=== PATIENT | male | born 1945 | race Hispanic/Latino ===

== ENCOUNTER 2019-01-15 12:29 | Emergency (ER) | payer MEDICARE, OTHER ==
--- OUTSIDE RECORDS SUMMARY | 2019-01-15 12:31 | XMS REPORT | Clinical Summary ---
:1945 Author Organization [facility] Address [address] [place] [address] Care Team Providers Name Role Phone Jacqueline Abad MD Primary Care Provider Allergies No Known Allergies Medications Medication Sig Dispensed Refills Start Date End Date Status metFORMIN (GLUCOPHAGE) Take 1,000 mg by 0 Active 1,000 mg tablet mouth 2 (two) times a day with meals. Active Problems Problem Noted Date Vitamin D deficiency 12/31/2016 Essential hypertension 12/31/2016 Encephalopathy 12/28/2016 Metabolic acidosis 12/28/2016 Impaired left ventricular relaxation 12/28/2016 Anemia due to blood loss 12/28/2016 Thrombocytopenia 12/28/2016 S/P aortic valve replacement 12/24/2016 Coronary artery disease involving coronary bypass graft of [place] heart 2016 Respiratory insufficiency 12/24/2016 Aortic valve stenosis 12/23/2016 Coronary artery disease involving [place] coronary artery 12/23/2016 Type 2 diabetes mellitus without complication 12/23/2016 CHF (congestive heart failure) Immunizations Name Dates Previously Given Next Due Pneumococcal Conjugate 13-Valent 01/01/2017 Family History Medical History Relation Name Comments Diabetes type II Brother No Known Problems Mother Diabetes type II Sister Relation Name Status Comments Brother Father Mother Sister Social History Tobacco Use Types Packs/Day Years Used Date Former Smoker Cigarettes Tobacco Cessation: Counseling Given: No Alcohol Use Drinks/Week oz/Week Comments No Sex Assigned at Date Recorded Not on file Job Start Date Occupation Industry Not on file Not on file Not on file Travel History Travel Start Travel End No recent travel history available. Last Filed Vital Signs Not on file Plan of Treatment Health Maintenance Due Date Last Done Comments DIABETIC RETINAL EYE EXAM 1945 DIABETIC FOOT EXAM 1955 URINE MICROALBUMIN 1956 COLON CANCER SCREENING 1996 SHINGLES VACCINES (#1) 1996 PNEUMOCOCCAL POLYSACCHARIDE VACCINE AGE 65 AND OVER 2011 65+ PNEUMOCOCCAL VACCINE (2 of 2 - PPSV23) 01/01/2018 01/01/2017 INFLUENZA VACCINE 06/15/2018 Implants Implanted Type Area Packaging Line Operator Device Shelf Model / Identifier Expiration Serial / Date Lot Lead Pace José Miguel Mycrdl Unipol Tmpry Streamline - [id number] Cardiovascular N/A : [employer] [place] - [id number] / Implanted: 12/24/2016 (Quantity not on file) Implants N/A CARDIAC SRGRY / Valve Aortic Hemo Peric Tiss W/Stanford Tech Cuff 21mm Trifecta - [id number] Cardiovascular N/A: ST LEMUEL 08/26/2020 TFGT 21A / Implanted: 12/24/2016 (Quantity not on file) Implants N/A STRUCTURAL [id number] / HEART [id number] Emigrant Perph Vasclr Ptfe 1.2x10cm 1.65mm - [id number] Vascular Graft N/A: BARD PERIPHERAL 09/11/2021 [id number] / Implanted: 12/24/2016 (Quantity not on file) N/A VASCULAR / [id number] Results Not on fileafter 01/14/2018 Insurance Payer Benefit Plan / Group Subscriber ID Type Phone Address [employer] [facility] xxxxxxxxx HMO (Home) [facility] ZEE [id number] Advance Directives Patient has advance care planning documents, and code status on file. For more information, please contact:[place] [address] Code Status Date Activated Date Inactivated Comments Full Code 12/23/2016 7:42 PM 01/03/2017 2:57 PM Code Status decision reached by: Patient
--- OUTSIDE RECORDS SUMMARY | 2019-01-15 12:32 | XMS REPORT | Clinical Summary ---
:1945 Author Organization [facility] Address [address] [place] [address] Care Team Providers Name Role Phone Alexandre Abad Primary Care Provider Allergies No Known Allergies Medications Medication Sig Dispensed Refills Start Date End Date Status clopidogrel (PLAVIX) 75 Take 75 mg by 0 Active mg tablet mouth daily. losartan (COZAAR) 50 MG Take 50 mg by 0 Active tablet mouth daily. aspirin 81 MG EC tablet Take 81 mg by 0 Active mouth daily. metoprolol (TOPROL-XL) Take 25 mg by 0 Active 25 MG 24 hr tablet mouth daily. atorvastatin (LIPITOR) Take 20 mg by 0 Active 20 MG tablet mouth daily. escitalopram oxalate Take 10 mg by 0 Active (LEXAPRO) 10 MG tablet mouth daily. traMADol (ULTRAM) 50 mg Take 1 tablet (50 30 tablet 0 06/26/2018 Active tablet mg total) by mouth every 6 (six) hours as needed. Max Daily Amount: 200 mg Active Problems Not on file Encounters Date Type Specialty Care Team Description 06/26/2018 Emergency Emergency Medicine Elizabeth Garza RLQ abdominal pain MD [place] (Primary Dx) after 01/14/2018 Social History Tobacco Use Types Packs/Day Years Used Date Former Smoker Smokeless Tobacco: Never Used Alcohol Use Drinks/Week oz/Week Comments No Sex Assigned at Date Recorded Not on file Job Start Date Occupation Industry Not on file Not on file Not on file Travel History Travel Start Travel End No recent travel history available. Last Filed Vital Signs Vital Sign Reading Time Taken Blood Pressure 158/79 06/26/2018 10:33 PM CDT Pulse 72 06/26/2018 10:33 PM CDT Temperature 37.3 C (99.2 F) 06/26/2018 8:14 PM CDT Respiratory Rate 17 06/26/2018 10:33 PM CDT Oxygen Saturation 96% 06/26/2018 10:33 PM CDT Inhaled Oxygen Concentration - - Weight 72.6 kg (160 lb) 06/26/2018 8:14 PM CDT Height 162.6 cm (5' 4") 06/26/2018 8:14 PM CDT Body Mass Index 27.46 06/26/2018 8:14 PM CDT Plan of Treatment Not on file Procedures Procedure Name Priority Date/Time Associated Comments Diagnosis RHYTHM STRIP - SCAN 06/27/2018 3:[address] ABDOMEN/PELVIS STAT 06/26/2018 10:20 Results for this WITHOUT IV CONTRAST PM CDT procedure are in the results section. CBC W/PLT COUNT & STAT 06/26/2018 8:31 Results for this AUTO DIFFERENTIAL PM CDT procedure are in the results section. URINALYSIS W/ STAT 06/26/2018 8:31 Results for this MICROSCOPIC PM CDT procedure are in the results section. LIPASE STAT 06/26/2018 8:31 Results for this PM CDT procedure are in the results section. HEPATIC FUNCTION STAT 06/26/2018 8:31 Results for this PANEL PM CDT procedure are in the results section. BASIC METABOLIC PANEL STAT 06/26/2018 8:31 Results for this (7) PM CDT procedure are in the results section. CBC W/PLT COUNT & STAT 06/26/2018 8:31 Results for this AUTO DIFFERENTIAL PM CDT procedure are in the results section. after 01/14/2018 Results RHYTHM STRIP - SCAN (06/27/2018 3:36 PM CDT) Narrative Performed At CT abdomen pelvis without contrast (06/26/2018 10:20 PM CDT) Narrative Performed At Addendum Begins [facility] REPORT STATUS:A Correction: The examination was performed without IV contrast. Signed: Tyler Teague MD Report Verified Date/Time:07/28/2018 23:42:17 Reading Location: [address] Reading Room Addendum Ends FINAL REPORT CLINICAL HISTORY: Right lower quadrant pain FINDINGS: Multiple axial images of the abdomen and pelvis were performed before and after the uncomplicated administration of IV contrast. Oral contrast was given. This exam was performed according to our departmental dose-optimization program, which includes automated exposure control, adjustment of the mA and/or kV according to patient size and/or use of the iterative reconstruction technique. Comparison:None. Lower chest: 5 mm noncalcified, well-circumscribed nodule in the right lower lobe. No pleural effusion or pneumothorax. Previous sternotomy. Atherosclerotic calcification of the coronary arteries. Enteric contrast in the distal esophagus. Liver: Punctate calcified granulomata in the liver Gallbladder and biliary tree: Previous cholecystectomy Spleen: No significant findings. Adrenal Glands: No significant findings. Kidneys and ureters: No significant findings. Stomach and Duodenum: Small hiatal hernia. Pancreas: No significant findings. Bowel: No significant findings. Appendix: Normal. Bladder: No significant findings. Major vascular structures: Scattered atherosclerotic calcifications Reproductive organs: No significant findings. Other: No free air, fluid or adenopathy Skeleton: No acute bony abnormality. IMPRESSION: No CT abnormality to explain the patient's right lower quadrant pain the appendix is normal. Small hiatal hernia. Enteric contrast is present in the distal esophagus, possibly reflecting reflux. Outpatient upper GI examination can be performed, if clinically indicated. Previous cholecystectomy. 5 mm, noncalcified nodule in the right lower lobe. Please see below for published recommendations related to follow-up. 2017 Fleischner Society Recommendations for Single Solid Lung Nodule Follow-Up based on size (average of long- and short-axis diameters) <6 mm Low-Risk Patient: No routine follow-up <6 mm High-Risk Patient: Optional CT at 12 months Signed: Tyler Teague MD Report Verified Date/Time:06/26/2018 22:41:15 Reading Location: [address] Procedure Note Interface, External Ris In - 07/28/2018 11:44 PM CDT Addendum Begins REPORT STATUS:A Correction: The examination was performed without IV contrast. Signed: Tyler Teague MD Report Verified Date/Time: 07/28/2018 23:42:17 Reading Location: [address] Reading Room Addendum Ends FINAL REPORT CLINICAL HISTORY: Right lower quadrant pain FINDINGS: Multiple axial images of the abdomen and pelvis were performed before and after the uncomplicated administration of IV contrast. Oral contrast was given. This exam was performed according to our departmental dose-optimization program, which includes automated exposure control, adjustment of the mA and/or kV according to patient size and/or use of the iterative reconstruction technique. Comparison:None. Lower chest: 5 mm noncalcified, well-circumscribed nodule in the right lower lobe. No pleural effusion or pneumothorax. Previous sternotomy. Atherosclerotic calcification of the coronary arteries. Enteric contrast in the distal esophagus. Liver: Punctate calcified granulomata in the liver Gallbladder and biliary tree: Previous cholecystectomy Spleen: No significant findings. Adrenal Glands: No significant findings. Kidneys and ureters: No significant findings. Stomach and Duodenum: Small hiatal hernia. Pancreas: No significant findings. Bowel: No significant findings. Appendix: Normal. Bladder: No significant findings. Major vascular structures: Scattered atherosclerotic calcifications Reproductive organs: No significant findings. Other: No free air, fluid or adenopathy Skeleton: No acute bony abnormality. IMPRESSION: No CT abnormality to explain the patient's right lower quadrant pain the appendix is normal. Small hiatal hernia. Enteric contrast is present in the distal esophagus, possibly reflecting reflux. Outpatient upper GI examination can be performed, if clinically indicated. Previous cholecystectomy. 5 mm, noncalcified nodule in the right lower lobe. Please see below for published recommendations related to follow-up. 2017 Fleischner Society Recommendations for Single Solid Lung Nodule Follow-Up based on size (average of long- and short-axis diameters) <6 mm Low-Risk Patient: No routine follow-up <6 mm High-Risk Patient: Optional CT at 12 months Signed: Tyler Teague MD Report Verified Date/Time: 06/26/2018 22:41:15 Reading Location: [address] Reading Room Performing Organization Address City/State/Zipcode Phone Number GE RIS CBC with platelet count + automated diff (06/26/2018 8:31 PM CDT) WBC 10.1 (H) 4.0 - 10.0 K/L [facility] RBC 4.59 4.20 - 5.80 M/L [facility] Hemoglobin 14.8 13.0 - 16.8 GM/DL [facility] Hematocrit 42.7 40.0 - 50.0 % [facility] MCV 93.0 82.0 - 98.0 fL [facility] MCH 32.3 27.0 - 33.0 pg [facility] MCHC 34.7 32.0 - 36.0 GM/DL [facility] RDW 13.4 10.3 - 14.2 % [facility] Platelets 186 150 - 430 K/CU MM [facility] MPV 7.5 6.5 - 10.5 fL [facility] nRBC 0 0 - 0 /100 WBC [facility] % Neutros 76 % [facility] % Lymphs 18 % [facility] % Monos 5 % [facility] % Eos 1 % [facility] % Baso 0 % [facility] # Neutros 7.60 1.80 - 8.00 K/L [facility] # Lymphs 1.80 1.48 - 4.50 K/L [facility] # Monos 0.50 0.00 - 1.30 K/L [facility] # Eos 0.10 0.00 - 0.50 K/L [facility] # Baso 0.00 0.00 - 0.20 K/L [facility] Specimen Blood Performing Organization Address [facility] Phone Number [facility] [address] [place] [address] [phone] Urinalysis w/Microscopic (06/26/2018 8:31 PM CDT) Color, UA Yellow [facility] Clarity, UA Clear [facility] Specific [place], UA 1.025 1.001 - 1.035 [facility] pH, UA 5.5 5.0 - 8.0 [facility] Protein, UA Trace (A) Negative [facility] Glucose, UA >=1000 mg/dL (A) Negative [facility] Ketones, UA Trace (A) Negative [facility] Bilirubin, UA Negative Negative [facility] Blood, UA Trace (A) Negative [facility] Nitrite, UA Negative Negative [facility] Leukocytes, UA Negative Negative [facility] Urobilinogen, UA 0.2 0.2 - 1.0 mg/dL [facility] Bacteria, UA None Seen [facility] RBC, UA None Seen /HPF [facility] WBC, UA <5 /HPF [facility] SQUAMOUS EPITHELIAL None Seen /HPF [facility] Specimen Source [facility] Specimen Urine - Urine, Clean Catch Performing Organization Address [facility] Phone Number [address] [phone] Lipase (06/26/2018 8:31 PM CDT) Lipase 19 6 - 51 U/L [facility] Specimen Blood Performing Organization Address City/State/Zipcode Phone Number [facility] [address] [place] [address] Liver Panel (06/26/2018 8:31 PM CDT) Protein, Total 7.9 6.0 - 8.5 gm/dL [facility] Albumin 4.1 3.5 - 5.0 g/dL [facility] Total Bilirubin 0.8 0.1 - 1.2 mg/dL [facility] Bilirubin, Direct 0.4 0.0 - 0.4 mg/dL [facility] Alkaline Phosphatase 108 30 - 115 U/L [facility] AST 13 5 - 40 U/L [facility] ALT 13 5 - 50 U/L [facility] Specimen Blood Performing Organization Address [facility] Phone Number [facility] [address] [place] [phone] Basic metabolic panel (Na, K+, Cl, CO2, Glu, Ca, BUN, Cr) (06/26/2018 8:31 PM CDT) Sodium 138 135 - 148 meq/L [facility] Potassium 4.2 3.6 - 5.5 meq/L [facility] Chloride 106 98 - 106 meq/L [facility] CO2 21 20 - 29 meq/L [facility] BUN 27 (H) 10 - 26 mg/dL [facility] Creatinine 1.43 (H) 0.50 - 1.20 mg/dL [facility] Glucose 241 (H) 70 - 110 mg/dL [facility] Calcium 10.0 8.5 - 10.5 mg/dL [facility] EGFR 49Comment: ESTIMATED GFR IS NOT mL/min/1.73 sq m [facility] ACCURATE CREATININE CLEARANCE IN PREDICTING GLOMERULAR FILTRATION RATE. ESTIMATED GFR IS NOT APPLICABLE FOR DIALYSIS PATIENTS. Specimen Blood Performing Organization Address City/State/Zipcode Phone Number [facility] [place] [address] [phone] after 01/14/2018 Insurance Payer Benefit Plan / Group Subscriber ID Type Phone Address [employer] - MEDICARE AARP/MEDICARE COMPLETE xxxxxxxxx MGD CARE
[2019-01-15 13:32] LABS: Absolute Lymphocytes (CBC) 1.5 K/uL (0.7-4.9); Absolute Monocytes 0.5 K/uL (0.1-1.3); Basophils % 0.6 % (0-1.3); Eosinophils % 2.7 % (0-4.4); MPV 7.6 fL (7.6-11.3); Monocytes % 6.7 % (3.3-12.3); RBC Red Blood Cell Count 4.57 M/uL (4.33-5.43)
[2019-01-15 13:39] LABS: Protime INR 0.99
--- NOTE | 2019-01-15 13:50 | RAD REPORT ---
EXAM DESCRIPTION: RAD - Chest Single View - 01/15/2019 1:18 pm CLINICAL HISTORY: Shortness of breath, weakness COMPARISON: September 2011 TECHNIQUE: AP portable chest image was obtained 1315 hours . FINDINGS: No focal lung parenchymal process. No failure or volume overload. Lung markings are not si gnificantly different from comparison. Heart and vasculature are normal. No measurable pleural effusi on and no pneumothorax. No acute bony abnormality seen. No acute aortic findings suspected. IMPRESSION: No acute cardiopulmonary process.
[2019-01-15 13:52] LABS: ALT/SGPT 23 U/L (12-78); AST/SGOT 15 U/L (15-37); Albumin 3.5 g/dL (3.4-5.0); Alkaline Phosphatase 132 U/L (45-117); BUN Blood Urea Nitrogen 17 mg/dL (7-18); Bicarbonate 28 mmol/L (21-32); Bilirubin Direct 0.2 mg/dL (0-0.2); Bilirubin Total 0.8 mg/dL (0.2-1.0); Glucose Level 294 mg/dL (74-106); Magnesium 2.3 mg/dL (1.8-2.4); NT PRO-BNP 196 pg/mL (<125); Potassium 4.4 mmol/L (3.5-5.1); Protein, Total 7.9 g/dL (6.4-8.2); Sodium Level 137 mmol/L (136-145); Troponin (Emerg Dept Use Only) < 0.02 ng/mL (0.0-0.045)
--- NOTE | 2019-01-15 14:32 | EDPHYS ---
Physician Documentation [facility] Name: Marvin Ricketts Age: 73 yrs Sex: Male : 1945 Arrival Date: 01/15/2019 Time: 12:33 Bed 5 Private MD: ED Physician Sina Stone HPI: 01/15 16:04 This 73 yrs old Male presents to ER via Ambulatory with complaints of gs Weakness, Dizziness, Indigestion. 16:04 The patient presents to the emergency department with weakness of the entire body, gs generalized weakness. Onset: The symptoms/episode began/occurred 1 week(s) ago. Context: occurred at home. Associated signs and symptoms: Pertinent negatives: altered mental status. Severity of symptoms: At their worst the symptoms were moderate in the emergency department the symptoms are unchanged. The patient has experienced similar episodes in the past, a few times. Historical: - Allergies: 12:49 No Known Allergies; jl7 - Home Meds: 12:49 metoprolol tartrate 25 mg Oral tab 1 tab 2 times per day [Active]; losartan 50 mg oral jl7 tab 1 tab once daily [Active]; simvastatin 20 mg Oral tab 1 tab once daily [Active]; clopidogrel 75 mg oral tab 1 tab once daily [Active]; aspirin 81 mg Oral TbEC 1 tab once daily [Active]; - PMHx: 12:49 Myocardial infarction; Hyperlipidemia; Hypertension; jl7 - Immunization history:: Adult Immunizations unknown. - Social history:: Smoking status: Patient/guardian denies using tobacco. - Ebola Screening: : No symptoms or risks identified at this time. ROS: 16:04 Cardiovascular: Positive for chest pain. gs 16:04 All other systems are negative. Exam: 16:04 Head/Face: Normocephalic, atraumatic. Eyes: Pupils equal round and reactive to light, gs extra-ocular motions intact. Lids and lashes normal. Conjunctiva and sclera are non-icteric and not injected. Cornea within normal limits. Periorbital areas with no swelling, redness, or edema. ENT: Nares patent. No nasal discharge, no septal abnormalities noted. Tympanic membranes are normal and external auditory canals are clear. Oropharynx with no redness, swelling, or masses, exudates, or evidence of obstruction, uvula midline. Mucous membranes moist. Neck: Trachea midline, no thyromegaly or masses palpated, and no cervical lymphadenopathy. Supple, full range of motion without nuchal rigidity, or vertebral point tenderness. No Meningismus. Chest/axilla: Normal chest wall appearance and motion. Nontender with no deformity. No lesions are appreciated. Cardiovascular: Regular rate and rhythm with a normal S1 and S2. No gallops, murmurs, or rubs. Normal PMI, no JVD. No pulse deficits. Respiratory: Lungs have equal breath sounds bilaterally, clear to auscultation and percussion. No rales, rhonchi or wheezes noted. No increased work of breathing, no retractions or nasal flaring. Abdomen/GI: Soft, non-tender, with normal bowel sounds. No distension or tympany. No guarding or rebound. No evidence of tenderness throughout. Back: No spinal tenderness. No costovertebral tenderness. Full range of motion. Skin: Warm, dry with normal turgor. Normal color with no rashes, no lesions, and no evidence of cellulitis. MS/ Extremity: Pulses equal, no cyanosis. Neurovascular intact. Full, normal range of motion. Neuro: Awake and alert, GCS 15, oriented to person, place, time, and situation. Cranial nerves II-XII grossly intact. Motor strength 5/5 in all extremities. Sensory grossly intact. Cerebellar exam normal. Normal gait. 16:04 Constitutional: The patient appears alert, awake. 16:04 ECG was reviewed by the Attending Physician. Vital Signs: 12:46 BP 161 / 77; Pulse 67; Resp 18 S; Temp 98.2(O); Pulse Ox 97% on R/A; Weight 73.48 kg [facility] (R); Height 5 ft. 3 in. (160.02 cm) (R); Pain 0/10; 14:17 BP 158 / 77; Pulse 68; Resp 16 S; Pulse Ox 95% on R/A; 7 14:44 BP 158 / 75; Pulse 69; Resp 16 S; Pulse Ox 97% on R/A; 7 12:46 Body Mass Index 28.70 (73.48 kg, 160.02 cm) [facility] NIH Stroke Scale Scores: 13:15 NIHSS Score: 0 [facility] MDM: 13:03 Patient medically screened. 16:04 Data reviewed: vital signs, nurses notes, lab test result(s), EKG, radiologic studies. Counseling: I had a detailed discussion with the patient and/or guardian regarding: the historical points, exam findings, and any diagnostic results supporting the discharge/admit diagnosis, lab results, radiology results. Response to treatment: the patient's symptoms have markedly improved after treatment, the patient's symptoms have resolved after treatment, and as a result, I will discharge patient. 01/15 13:05 Order name: Basic Metabolic Panel; Complete Time: 13:53 gs 01/15 13:05 Order name: CBC with Diff; Complete Time: 13:53 gs 01/15 13:05 Order name: LFT's; Complete Time: 13:53 gs 01/15 13:05 Order name: Magnesium; Complete Time: 13:53 gs 01/15 13:05 Order name: NT PRO-BNP; Complete Time: 13:53 gs 01/15 13:05 Order name: PT-INR; Complete Time: 13:53 gs 01/15 13:05 Order name: Troponin (emerg Dept Use Only); Complete Time: 13:53 gs 01/15 13:05 Order name: XRAY Chest (1 view); Complete Time: 13:53 gs 01/15 13:05 Order name: EKG; Complete Time: 13:06 gs 01/15 13:05 Order name: Cardiac monitoring; Complete Time: 13:27 gs 01/15 13:05 Order name: EKG - Nurse/Tech; Complete Time: 13:55 gs 01/15 13:05 Order name: IV Saline Lock; Complete Time: 13:27 gs 01/15 13:05 Order name: Labs collected and sent; Complete Time: 13:27 gs 01/15 13:05 Order name: O2 Per Protocol; Complete Time: 13:27 gs 01/15 13:05 Order name: O2 Sat Monitoring; Complete Time: 13:27 gs EC:04 Rate is 67 beats/min. Rhythm is regular. MT interval is normal. QRS interval is gs prolonged. T waves are Flattened. No ST changes noted. Clinical impression: NSR w/ Non-specific ST/T Changes. Interpreted by me. Administered Medications: No medications were administered Point of Care Testing: Blood Glucose: 13:28 Blood Glucose: 304 mg/dL; jl7 Ranges: Critical Glucose Levels:Adult <50 mg/dl or >400 mg/dl <40 mg/dl or >180 mg/dl Disposition: 01/15/19 14:31 Discharged to Home. Impression: Weakness, Hyperglycemia, unspecified. - Condition is Stable. - Discharge Instructions: Hyperglycemia, Weakness. - Medication Reconciliation Form, Thank You Letter, Antibiotic Education, Prescription Opioid Use form. - Follow up: Private Physician; When: 2 - 3 days; Reason: Re-evaluation by your physician. NIH Stroke Scale - NIH Stroke Score Date: 01/15/2019 Time: 13:15 Total Score = 0 1a. Level of Consciousness (LOC) - 0(Alert) 1b. Level of Consciousness (LOC) (Year \T\ Age) - 0(Both) 1c. LOC Commands (Open \T\ Closes Eyes/Lunchroom Worker) - 0(Both) 2. Best Gaze (Lateral Gaze Paresis) - 0(Normal) 3. Visual Field Loss - 0(No visual loss) 4. Facial Palsy - 0(Normal) 5a. Left Arm: Motor (10-second hold) - 0(No drift) 5b. Right Arm: Motor (10-second hold) - 0(No drift) 6a. Left Leg: Motor (5-second hold - always test supine) - 0(No drift) 6b. Right Leg: Motor (5-second hold - always test supine) - 0(No drift) 7. Limb Ataxia (finger/nose \T\ heel/[place] - test with eyes open) - 0(Absent) 8. Sensory Loss (pinprick arms/legs/face) - 0(Normal) 9. Best Language: Aphasia (description/naming/reading) - 0(No aphasia) 10. Dysarthria (speech clarity - read or repeat words) - 0(Normal) 11. Extinction and Inattention (visual/tactile/auditory/spatial/personal) - 0(No abnormality) Initials: jl7 Signatures: Dispatcher [employer] EDMS Migel Wilkins RN RN jl7 Sina Stone MD MD gs Corrections: (The following items were deleted from the chart) 14:45 14:31 01/15/2019 14:31 Discharged to Home. Impression: Weakness; Hyperglycemia, jl7 unspecified. Condition is Stable. Forms are Medication Reconciliation Form, Thank You Letter, Antibiotic Education, Prescription Opioid Use. Follow up: Private Physician; When: 2 - 3 days; Reason: Re-evaluation by your physician. gs
--- NOTE | 2019-01-15 14:32 | ER ---
Nurse's Notes [facility] Name: Marvin Ricketts Age: 73 yrs Sex: Male : 1945 Arrival Date: 01/15/2019 Time: 12:33 Bed 5 Private MD: Diagnosis: Weakness;Hyperglycemia, unspecified Presentation: 01/15 12:44 Presenting complaint: Patient states: A week ago I started feeling a little light jl7 headed and short of breath and I've been having indigestion every night. Denies chest pain, denies N/V/D. Transition of care: patient was not received from another setting of care. No acute neurological deficit is noted. Pre-hospital glucose is not applicable to this patient. Onset of symptoms was January 09, 2019. Risk Assessment: Do you want to hurt yourself or someone else? Patient reports no desire to harm self or others. Initial Sepsis Screen: Does the patient meet any 2 criteria? No. Patient's initial sepsis screen is negative. Does the patient have a suspected source of infection? No. Patient's initial sepsis screen is negative. Care prior to arrival: None. 12:44 Method Of Arrival: Ambulatory jl7 12:44 Acuity: EUGENIO 3 jl7 Triage Assessment: 12:49 The onset of the patients symptoms was. General: Appears in no apparent distress. jl7 uncomfortable, Behavior is calm, cooperative, appropriate for age. Pain: Denies pain. EENT: No signs and/or symptoms were reported regarding the EENT system. Neuro: Level of Consciousness is awake, alert, obeys commands, Oriented to person, place, time, situation, Reports dizziness. Cardiovascular: Reports lightheadedness, shortness of breath, Denies chest pain, nausea, Patient's skin is warm and dry. Respiratory: Airway is patent Respiratory effort is even, unlabored, Respiratory pattern is regular, symmetrical. GI: No signs and/or symptoms were reported involving the gastrointestinal system. : No signs and/or symptoms were reported regarding the genitourinary system. Derm: Skin is pink, warm \T\ dry. Musculoskeletal: No signs and/or symptoms reported regarding the musculoskeletal system. Stroke Activation: Symptom onset > 6 hours Physician: Stroke Attending; Name: ; Notified At: ; Arrived At: Physician: Chief Stroke Resident; Name: ; Notified At: ; Arrived At: Physician: Stroke Resident; Name: ; Notified At: ; Arrived At: Physician: ED Attending; Name: ; Notified At: ; Arrived At: Physician: ED Resident; Name: ; Notified At: ; Arrived At: Historical: - Allergies: 12:49 No Known Allergies; jl7 - Home Meds: 12:49 metoprolol tartrate 25 mg Oral tab 1 tab 2 times per day [Active]; losartan 50 mg oral jl7 tab 1 tab once daily [Active]; simvastatin 20 mg Oral tab 1 tab once daily [Active]; clopidogrel 75 mg oral tab 1 tab once daily [Active]; aspirin 81 mg Oral TbEC 1 tab once daily [Active]; - PMHx: 12:49 Myocardial infarction; Hyperlipidemia; Hypertension; jl7 - Immunization history:: Adult Immunizations unknown. - Social history:: Smoking status: Patient/guardian denies using tobacco. - Ebola Screening: : No symptoms or risks identified at this time. Screenin:51 Abuse screen: Denies threats or abuse. Denies injuries from another. Nutritional jl7 screening: No deficits noted. Tuberculosis screening: No symptoms or risk factors identified. Fall Risk IV access (20 points). Total Lugo Fall Scale indicates No Risk (0-24 pts). Assessment: 13:00 General: See triage assessment. jl7 13:15 VAN Scoring: Arm Drift: Patients demonstrates NO arm weakness. Patient is VAN Negative. jl7 The patient has not been NPO before screening. The patient is currently on the following diet: Regular The patient is alert, and able to follow commands. The patient does not exhibit slurred or garbled speech. The patient is not exhibiting difficulty speaking. The patient does not exhibit difficulty understanding words. The patient is able to swallow own secretions with no drooling or need for suction. Patient tolerated one teaspoon of water. No drooling, immediate coughing, gurgling, or clearing of the throat was noted. The patient tolerated 90mL of water. No drooling, immediate coughing, gurgling, or clearing of the throat was noted. The patient passed the bedside swallow screening. Oral medications may be given as ordered. Contact Physician for further diet orders. Provider notified of bedside swallow screening results: Sina Stone MD. T-PA (Activase) Screening: Contraindications: Patient reports onset of signs and symptoms of stroke greater than 6 hours ago: Yes. 14:00 Reassessment: Patient appears in no apparent distress at this time. Patient and/or jl7 family updated on plan of care and expected duration. Pain level reassessed. Patient is alert, oriented x 3, equal unlabored respirations, skin warm/dry/pink. Patient states feeling better. Vital Signs: 12:46 BP 161 / 77; Pulse 67; Resp 18 S; Temp 98.2(O); Pulse Ox 97% on R/A; Weight 73.48 kg jl7 (R); Height 5 ft. 3 in. (160.02 cm) (R); Pain 0/10; 14:17 BP 158 / 77; Pulse 68; Resp 16 S; Pulse Ox 95% on R/A; jl7 14:44 BP 158 / 75; Pulse 69; Resp 16 S; Pulse Ox 97% on R/A; jl7 12:46 Body Mass Index 28.70 (73.48 kg, 160.02 cm) jl7 NIH Stroke Scale Scores: 13:15 NIHSS Score: 0 jl7 ED Course: 12:33 Patient arrived in ED. as 12:37 Migel Wilkins, RN is Primary Nurse. jl7 12:39 Sina Stone MD is Attending Physician. gs 12:46 Triage completed. jl7 12:46 Arm band placed on right wrist. jl7 12:51 Patient has correct armband on for positive identification. Placed in gown. Bed in low jl7 position. Call light in reach. Side rails up X 1. medical office specialist on. Pulse ox on. NIBP on. Warm blanket given. 12:51 EKG done, by ED staff, reviewed by Sina Stone MD. jl7 13:16 X-ray completed. Portable x-ray completed in exam room. Patient tolerated procedure sg4 well. 13:16 XRAY Chest (1 view) In Process Unspecified. EDMS 13:28 Initial lab(s) drawn, by me, sent to lab. Inserted saline lock: 22 gauge in left jl7 antecubital area, using aseptic technique. Blood collected. 14:44 No provider procedures requiring assistance completed. IV discontinued, intact, jl7 bleeding controlled, No redness/swelling at site. Pressure dressing applied. Administered Medications: No medications were administered Point of Care Testing: Blood Glucose: 13:28 Blood Glucose: 304 mg/dL; jl7 Ranges: Outcome: 14:31 Discharge ordered by . samuel 14:44 Discharged to home ambulatory. [facility] 14:44 Condition: stable 14:44 Discharge instructions given to patient, Instructed on discharge instructions, follow up and referral plans. Demonstrated understanding of instructions, follow-up care. 14:45 Patient left the ED. jl7 NIH Stroke Scale - NIH Stroke Score Date: 01/15/2019 Time: 13:15 Total Score = 0 1a. Level of Consciousness (LOC) - 0(Alert) 1b. Level of Consciousness (LOC) (Year \T\ Age) - 0(Both) 1c. LOC Commands (Open \T\ Closes Eyes/Addressing Machine Operator) - 0(Both) 2. Best Gaze (Lateral Gaze Paresis) - 0(Normal) 3. Visual Field Loss - 0(No visual loss) 4. Facial Palsy - 0(Normal) 5a. Left Arm: Motor (10-second hold) - 0(No drift) 5b. Right Arm: Motor (10-second hold) - 0(No drift) 6a. Left Leg: Motor (5-second hold - always test supine) - 0(No drift) 6b. Right Leg: Motor (5-second hold - always test supine) - 0(No drift) 7. Limb Ataxia (finger/nose \T\ heel/agustin - test with eyes open) - 0(Absent) 8. Sensory Loss (pinprick arms/legs/face) - 0(Normal) 9. Best Language: Aphasia (description/naming/reading) - 0(No aphasia) 10. Dysarthria (speech clarity - read or repeat words) - 0(Normal) 11. Extinction and Inattention (visual/tactile/auditory/spatial/personal) - 0(No abnormality) Initials: Enio Signatures: Dispatcher [employer] Sarahy Rosenthal Jahala, RN RN jl7 Sina Stone MD MD gs Garcia, Susana 4
[2019-01-15 14:52] VITALS: TEMP 98.2
[2019-01-15 14:54] VITALS: BP 158/75; O2SAT 97
--- NOTE | 2019-01-16 09:13 | EKG ---
Test Date: 2019-01-15 Test Time: 12:42:45 Engineering Intern: BREANNE MEASUREMENT RESULTS: Intervals: Rate: 67 LA: 180 QRSD: 102 QT: 412 QTc: 435 Julian: P: 10 LA: 180 QRS: -48 T: 53 INTERPRETIVE STATEMENTS: Normal sinus rhythm Left axis deviation Abnormal ECG Compared to ECG 07/12/2012 16:25:41 Left-axis deviation now present Electronically Signed On 01-16-19 09:12:42 OTHER SPORTS COACH OR INSTRUCTOR by Gil Ramirez
== END 2019-01-15 14:45 | disposition home or self-care (01) ==
LOC: ER 12:29
DX: R73.9 Hyperglycemia, unspecified (principal); I10 Essential (primary) hypertension; I25.2 Old myocardial infarction; Z79.82 Long term (current) use of aspirin
CPT/HCPCS: 36415; 71045; 80048; 80076; 82962; 83735; 83880; 84484; 85025; 85610; 93005; 99284

== ENCOUNTER 2019-01-21 11:53 | Emergency (ER) | payer OTHER ==
--- NOTE | 2019-01-21 14:19 | RAD REPORT ---
EXAM DESCRIPTION: RAD - Hand Left 3 View - 01/21/2019 1:47 pm CLINICAL HISTORY: Pain to the left thumb, history of abscess, history of diabetes COMPARISON: None. FINDINGS: No acute fracture changes are present. Patient has degenerative change at the IP joint of the thumb. There is bony remodeling of the second metacarpal head from old trauma. There is old traum a change to the fifth middle phalanx. Patient has an overall mild IP joint degenerative change throug hout the hand. Trapezial first metacarpal degenerative changes are present. There degenerative change s to the first carpal row. Left thumb soft tissue swelling is present. No air or drainable fluid collection. Small metallic fore ign body is seen near the base of the seconds proximal phalanx unrelated to the acute presentation. IMPRESSION: Left thumb soft tissue swelling without air or foreign body in the thumb. Left thumb degenerative change with no bone destructive process.
--- NOTE | 2019-01-21 14:43 | EDPHYS ---
Physician Documentation [facility] Name: Marvin Ricketts Age: 73 yrs Sex: Male : 1945 Arrival Date: 01/21/2019 Time: 11:56 Bed 28 Private MD: ED Physician Bang Lazar HPI: 01/21 13:17 This 73 yrs old Male presents to ER via Ambulatory with complaints of Finger jmm Injury. 13:17 The patient or guardian reports pain, swelling. Onset: The symptoms/episode jmm began/occurred acutely, 3 day(s) ago. Associated signs and symptoms: Pertinent negatives: fever, numbness distally, tingling distally. This is a 73 year old male with a history of hlp, htn, [place], DM, that presents to the ED with complaints of left thumb pain and swelling. Patient states the thumb was hit by a wooden board 3 days prior. . 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 - Social history:: Smoking status: Patient/guardian denies using tobacco. - Ebola Screening: : Patient negative for fever greater than or equal to 101.5 degrees Fahrenheit, and additional compatible Ebola Virus Disease symptoms Patient denies exposure to infectious person Patient denies travel to an Ebola-affected area in the 21 days before illness onset No symptoms or risks identified at this time. ROS: 13:17 Constitutional: Negative for fever, chills, and weight loss, Cardiovascular: Negative jmm for chest pain, palpitations, and edema, Respiratory: Negative for shortness of breath, cough, wheezing, and pleuritic chest pain. 13:17 MS/extremity: Positive for pain, swelling. 13:17 All other systems are negative. Exam: 13:17 Head/Face: atraumatic. Eyes: EOMI, no conjunctival erythema appreciated ENT: Moist jmm Mucus Membranes Neck: Trachea midline, Supple Chest/axilla: Normal chest wall appearance and motion. Cardiovascular: Regular rate and rhythm. No edema appreciated Respiratory: Normal respirations, no respiratory distress appreciated Abdomen/GI: Non distended, soft Back: Normal ROM 13:17 Constitutional: The patient appears in no acute distress, alert, awake. 13:17 Musculoskeletal/extremity: swelling and mild erythema is noted surround the left thumb nail plate, the area is TTP, < 2 sec distal cap refill, FROM is appreciated. 13:17 Skin: erythema noted surrounding the left thumb nail plate. . 13:17 Neuro: Orientation: is normal, Mentation: is normal, Memory: is normal. 13:17 Psych: Behavior/mood is pleasant, cooperative. Vital Signs: 12:33 BP 146 / 84; Pulse 75; Resp 18; Temp 97.9; Pulse Ox 95% on R/A; Weight 77.11 kg; Height ch 5 ft. 3 in. (160.02 cm); Pain 6/10; 14:50 BP 138 / 90; Pulse 81; Resp 18 S; Pulse Ox 97% on R/A; rv 12:33 Body Mass Index 30.11 (77.11 kg, 160.02 cm) ch MDM: 13:[address] [facility] 14:40 Data reviewed: vital signs, nurses notes. Counseling: I had a detailed discussion with rikki the patient and/or guardian regarding: the historical points, exam findings, and any diagnostic results supporting the discharge/admit diagnosis, radiology results, the need for outpatient follow up, to return to the emergency department if symptoms worsen or persist or if there are any questions or concerns that arise at home. ED course: paronychia of the left thumb was drained with 18 gauge needle. a large amount of purulent exudate was expressed. Patient wound infection precautions. Patient understood and agrees with the plan of care. . 01/21 13:17 Order name: Hand Left 3 View XRAY; Complete Time: 14:30 rikki Administered Medications: No medications were administered Disposition: 01/21/19 14:42 Discharged to Home. Impression: Cellulitis of left finger. - Condition is Stable. - Discharge Instructions: Paronychia. - Prescriptions for Cephalexin 500 mg Oral Capsule - take 1 capsule by ORAL route every 6 hours for 10 days; 40 capsule. Bactrim DS 800- 160 mg Oral Tablet - take 1 tablet by ORAL route every 12 hours for 10 days; 20 tablet. - Medication Reconciliation Form, Thank You Letter, Antibiotic Education, Prescription Opioid Use form. - Follow up: Private Physician; When: 2 - 3 days; Reason: Recheck today's complaints, Continuance of care, Re-evaluation by your physician. Addendum: 01/23/2019 09:21 Co-signature as Attending Physician, Bang Lazar MD I agree with the assessment and c bateman plan of care. Signatures: Dispatcher [employer] EDDeepali Rhodes, RN RN Bang Lomax MD MD cha Mickail, Joel, PA PA jmm Vicente, Ronaldo RN RN rv Corrections: (The following items were deleted from the chart) 01/21 14:53 14:42 01/21/2019 14:42 Discharged to Home. Impression: Cellulitis of left finger. rv Condition is Stable. Forms are Medication Reconciliation Form, Thank You Letter, Antibiotic Education, Prescription Opioid Use. Follow up: Private Physician; When: 2 - 3 days; Reason: Recheck today's complaints, Continuance of care, Re-evaluation by your physician. rikki
--- NOTE | 2019-01-21 14:43 | ER ---
Nurse's Notes [facility] Name: Marvin Ricketts Age: 73 yrs Sex: Male : 1945 Arrival Date: 01/21/2019 Time: 11:56 Bed 28 Private MD: Diagnosis: Cellulitis of left finger Presentation: 01/21 12:32 Presenting complaint: Patient states: pain and pus to L thumg for weeks. Transition of care: patient was not received from another setting of care. Onset of symptoms was December 2018. Risk Assessment: Do you want to hurt yourself or someone else? Patient reports no desire to harm self or others. Initial Sepsis Screen: Does the patient meet any 2 criteria? No. Patient's initial sepsis screen is negative. Does the patient have a suspected source of infection? No. Patient's initial sepsis screen is negative. Care prior to arrival: None. 12:32 Method Of Arrival: Ambulatory 12:32 Acuity: EUGENIO 5 Triage Assessment: 12:33 General: Appears in no apparent distress. comfortable, Behavior is calm, cooperative, ch appropriate for age. Pain: Complains of pain in left thumb, dorsal aspect of distal phalanx of left thumb, palmar aspect of distal phalanx of left thumb and left thumbnail Pain currently is 6 out of 10 on a pain scale. Musculoskeletal: No signs and/or symptoms reported regarding the musculoskeletal system. 14:51 Injury Description: SWELLING. rv Historical: - Allergies: 12:33 No Known Allergies; ch - PMHx: 12:33 Hyperlipidemia; Hypertension; Myocardial infarction; Diabetes - IDDM; - PSHx: 12:33 cardiac valve; - Immunization history:: Adult Immunizations up to date, Pneumococcal vaccine is up to date, Flu vaccine is up to date. - Social history:: Smoking status: Patient/guardian denies using tobacco. - Ebola Screening: : Patient negative for fever greater than or equal to 101.5 degrees Fahrenheit, and additional compatible Ebola Virus Disease symptoms Patient denies exposure to infectious person Patient denies travel to an Ebola-affected area in the 21 days before illness onset No symptoms or risks identified at this time. Screenin:27 Abuse screen: Denies threats or abuse. Nutritional screening: No deficits noted. la1 Tuberculosis screening: No symptoms or risk factors identified. Fall Risk None identified. Assessment: 13:26 General: Appears in no apparent distress. Behavior is calm, cooperative. Pain: la1 Complains of pain in left thumbnail and palmar aspect of distal phalanx of left thumb. Neuro: Level of Consciousness is awake, alert, obeys commands, Oriented to person, place, time, situation. Cardiovascular: Capillary refill < 3 seconds Patient's skin is warm and dry. Respiratory: Airway is patent Respiratory effort is even, unlabored. GI: No signs and/or symptoms were reported involving the gastrointestinal system. : No signs and/or symptoms were reported regarding the genitourinary system. 14:26 Reassessment: Patient appears in no apparent distress at this time. No changes from la1 previously documented assessment. Patient is alert/active/playful, equal unlabored respirations, skin warm/dry/pink. Vital Signs: 12:33 BP 146 / 84; Pulse 75; Resp 18; Temp 97.9; Pulse Ox 95% on R/A; Weight 77.11 kg; Height ch 5 ft. 3 in. (160.02 cm); Pain 6/10; 14:50 BP 138 / 90; Pulse 81; Resp 18 S; Pulse Ox 97% on R/A; rv 12:33 Body Mass Index 30.11 (77.11 kg, 160.02 cm) ED Course: 11:56 Patient arrived in ED. as 12:33 Triage completed. ch 12:33 Arm band placed on left wrist. Patient placed in waiting room. 13:11 Leonel Stephens PA is PHCP. [facility] 13:11 Bang Lazar MD is Attending Physician. [facility] 13:26 Lupillo Nava, MARK is Primary Nurse. la1 13:27 Call light in reach. la1 13:27 No provider procedures requiring assistance completed. Patient did not have IV access la1 during this emergency room visit. 13:45 Hand Left 3 View XRAY In Process Unspecified. EDMS Administered Medications: No medications were administered Outcome: 14:42 Discharge ordered by . jmm 14:51 Discharged to home ambulatory. rv 14:51 Condition: good 14:51 Discharge instructions given to patient, family, Instructed on discharge instructions, follow up and referral plans. Demonstrated understanding of instructions, follow-up care, medications, Prescriptions given X 2. 14:53 Patient left the ED. rv Signatures: Dispatcher [employer] Deepali Francis, RN RN Leonel Sewell PA PA jmm Martinez, Amelia as Attema, Lee RN RN la1 Shaun Willett RN RN rv
[2019-01-21 15:01] VITALS: TEMP 97.9
[2019-01-21 15:03] VITALS: BP 138/90; O2SAT 97
== END 2019-01-21 14:53 | disposition home or self-care (01) ==
LOC: ER 11:53
DX: L03.012 Cellulitis of left finger (principal); I10 Essential (primary) hypertension; Z95.4 Presence of other heart-valve replacement
CPT/HCPCS: 99283

== ENCOUNTER 2019-04-30 11:05 | Emergency (ER) | payer OTHER ==
--- NOTE | 2019-04-30 13:31 | RAD REPORT ---
EXAM DESCRIPTION: CT - Stone Protocol - 04/30/2019 1:11 pm CLINICAL HISTORY: Abdominal pain. COMPARISON: 2012 TECHNIQUE: Computed axial tomography of the abdomen pelvis was obtained without oral or IV contrast. Lack of IV and oral contrast limits evaluation of solid organs, bowel, and vessels. Coronal reformat jose images were obtained and reviewed. All CT scans are performed using dose optimization technique as appropriate and may include automated exposure control or mA/KV adjustment according to patient size. FINDINGS: A tiny bilateral renal calculi. No hydronephrosis. An ureteral calculus is not noted. A bl adder calculus is not present. The liver, spleen, pancreas and adrenals appear grossly normal There is no evidence of diverticulitis. The appendix appears normal Large amount stool throughout the colon Mild to moderate enlargement prostate gland IMPRESSION: Tiny bilateral nonobstructing renal calculi Large amount stool throughout the colon
[2019-04-30 13:35] LABS: Absolute Lymphocytes (CBC) 1.9 K/uL (0.7-4.9); Absolute Monocytes 0.6 K/uL (0.1-1.3); Absolute Neutrophil 5.9 K/uL (1.8-8.0); Basophils % 0.6 % (0-1.3); Hematocrit 44.3 % (39.6-49.0); Lymphocytes % 21.7 % (15.3-44.8); MPV 7.7 fL (7.6-11.3); Monocytes % 7.4 % (3.3-12.3); RBC Red Blood Cell Count 4.84 M/uL (4.33-5.43)
[2019-04-30 13:36] LABS: Urine Blood TRACE (NEG); Urine Glucose TRACE (NEG); Urine Protein 2+ (NEG); Urine Specific Gravity 1.025 (1.005-1.030); Urine pH 5.5 (5.0-7.0)
--- NOTE | 2019-04-30 13:38 | ER ---
Nurse's Notes [facility] Name: Marvin Ricketts Age: 74 yrs Sex: Male : 1945 Arrival Date: 04/30/2019 Time: 11:06 Bed 15 Private MD: Jake Medel E Diagnosis: Lower abdominal pain, unspecified Presentation: 04/30 11:19 Presenting complaint: Patient states: having a hard time having a BM, taking laxatives iw with no relief, last BM this morning, small amount, also has pain to LUQ. Transition of care: patient was not received from another setting of care. Onset of symptoms was April 30, 2019. Risk Assessment: Do you want to hurt yourself or someone else? Patient reports no desire to harm self or others. Initial Sepsis Screen: Does the patient meet any 2 criteria? No. Patient's initial sepsis screen is negative. Does the patient have a suspected source of infection? No. Patient's initial sepsis screen is negative. Care prior to arrival: None. 11:19 Method Of Arrival: Ambulatory iw 11:19 Acuity: EUGENIO 3 iw Historical: - Allergies: 11:20 No Known Allergies; iw - Home Meds: 11:20 aspirin 81 mg Oral TbEC 1 tab once daily [Active]; clopidogrel 75 mg Oral tab 1 tab iw once daily [Active]; losartan 50 mg Oral tab 1 tab once daily [Active]; metoprolol tartrate 25 mg Oral tab 1 tab 2 times per day [Active]; simvastatin 20 mg Oral tab 1 tab once daily [Active]; - PMHx: 11:20 Diabetes - IDDM; Hyperlipidemia; Hypertension; Myocardial infarction; iw - PSHx: 11:20 cardiac valve; iw - Immunization history:: Adult Immunizations up to date. - Ebola Screening: : Patient negative for fever greater than or equal to 101.5 degrees Fahrenheit, and additional compatible Ebola Virus Disease symptoms Patient denies exposure to infectious person Patient denies travel to an Ebola-affected area in the 21 days before illness onset No symptoms or risks identified at this time. - Social history:: Smoking status: Patient/guardian denies using tobacco. Screenin:56 Abuse screen: Denies threats or abuse. Denies injuries from another. Nutritional ca1 screening: No deficits noted. Tuberculosis screening: No symptoms or risk factors identified. Fall Risk None identified. Assessment: 11:56 General: Appears in no apparent distress. comfortable, Behavior is calm, cooperative, ca1 appropriate for age. Pain: Complains of pain in anterior aspect of left lateral abdomen, posterior aspect of left lateral abdomen, anterior aspect of right lateral abdomen and posterior aspect of right lateral abdomen Pain does not radiate. Pain currently is 7 out of 10 on a pain scale. Quality of pain is described as pulling. "Like a pulled muscle" as pt stated Pain began 2-3 days ago. Neuro: Level of Consciousness is awake, alert, obeys commands, Oriented to person, place, time, situation. Cardiovascular: Heart tones S1 S2 present Capillary refill < 3 seconds Patient's skin is warm and dry. Pulses are all present. Respiratory: Airway is patent Respiratory effort is even, unlabored, Respiratory pattern is regular, symmetrical, Breath sounds are clear bilaterally. GI: Abdomen is round non-distended, Bowel sounds present X 4 quads. Abd is soft X 4 quads Abdomen is tender to palpation in anterior aspect of left lateral abdomen, posterior aspect of left lateral abdomen, anterior aspect of right lateral abdomen and posterior aspect of right lateral abdomen Reports constipation, since 2 - 3 days ago. : No deficits noted. No signs and/or symptoms were reported regarding the genitourinary system. EENT: No deficits noted. No signs and/or symptoms were reported regarding the EENT system. Derm: Skin is intact, is healthy with good turgor, Skin is pink, warm \\T\\ dry. Musculoskeletal: Circulation, motion, and sensation intact. Capillary refill < 3 seconds. 13:00 Reassessment: Patient appears in no apparent distress at this time. Patient and/or ca1 family updated on plan of care and expected duration. Pain level reassessed. Patient is alert, oriented x 3, equal unlabored respirations, skin warm/dry/pink. 14:13 Reassessment: Patient appears in no apparent distress at this time. Patient is alert, ca1 oriented x 3, equal unlabored respirations, skin warm/dry/pink. pt ambulated to restroom for BM. 14:46 Reassessment: Patient appears in no apparent distress at this time. Patient is alert, ca1 oriented x 3, equal unlabored respirations, skin warm/dry/pink. Patient states feeling better. Vital Signs: 11:20 BP 139 / 74; Pulse 81; Resp 16; Temp 98.8; Pulse Ox 97% on R/A; Weight 72.57 kg; Height iw 5 ft. 2 in. (157.48 cm); Pain 6/10; 13:00 BP 169 / 78; Pulse 79; Resp 16 S; Pulse Ox 99% on R/A; ca1 14:15 BP 141 / 84; Pulse 74; Resp 16 S; Pulse Ox 96% on R/A; ca1 14:48 BP 131 / 68; Pulse 72; Resp 16 S; Temp 98.5(O); Pulse Ox 97% on R/A; ca1 11:20 Body Mass Index 29.26 (72.57 kg, 157.48 cm) iw ED Course: 11:06 Patient arrived in ED. as 11:06 Jake Medel MD is Private Physician. as 11:20 Triage completed. iw 11:21 Arm band placed on. iw 11:44 Sina Stone MD is Attending Physician. gs 11:47 Ruth Toth RN is Primary Nurse. ca1 11:56 Patient has correct armband on for positive identification. Placed in gown. Bed in low ca1 position. Call light in reach. Side rails up X 1. Pulse ox on. NIBP on. Warm blanket given. 13:01 Missed attempt(s): 22 gauge in right forearm. Bleeding controlled, band aid applied, ca1 catheter tip intact. 13:08 Patient moved to PR via wheelchair. ca1 13:11 CT completed. Patient tolerated procedure well. Patient moved back from PR. mw3 13:12 CT Stone Protocol In Process Unspecified. EDMS 13:29 No provider procedures requiring assistance completed. Inserted saline lock: 22 gauge ca1 in right hand, using aseptic technique. Blood collected. 14:48 IV discontinued, intact, bleeding controlled, No redness/swelling at site. Pressure ca1 dressing applied. Administered Medications: 13:54 Drug: Dulcolax Suppository 10 mg Route: DE; ca1 14:13 Follow up: Response: BM x 1 ca1 Outcome: 13:38 Discharge ordered by . gs 14:48 Discharged to home ambulatory, with significant other. ca1 14:48 Condition: stable 14:48 Discharge instructions given to patient, Instructed on discharge instructions, follow up and referral plans. medication usage, Demonstrated understanding of instructions, follow-up care, medications, Prescriptions given X 1. 14:49 Patient left the ED. ca1 Signatures: Dispatcher [employer] Sarahy Rosenthal as hSirley Poe RN RN iw Sina Stone MD MD gs Willis, Michelle mw3 Ruth Toth RN RN ca1 Corrections: (The following items were deleted from the chart) 14:44 14:43 Reassessment: Pt back at restroom for BM x 2 ca1 ca1 14:48 14:15 BP 141 / 84; Pulse 74bpm; Resp 16bpm; Pulse Ox 96% RA; ca1 ca1
--- NOTE | 2019-04-30 13:38 | EDPHYS ---
Physician Documentation [facility] Name: Marvin Ricketts Age: 74 yrs Sex: Male : 1945 Arrival Date: 04/30/2019 Time: 11:06 Bed 15 Private MD: Jake Medel E ED Physician Sina Stone HPI: 04/30 13:43 This 74 yrs old Male presents to ER via Ambulatory with complaints of gs Constipation, Abdominal Pain. 13:44 The patient presents with abdominal pain in the lower abdomen. Onset: The gs symptoms/episode began/occurred gradually, 2 week(s) ago, and became persistent. The symptoms do not radiate. Associated signs and symptoms: Pertinent positives: constipation, Pertinent negatives: blood in stools. The symptoms are described as crampy. Modifying factors: The symptoms are alleviated by nothing, the symptoms are aggravated by nothing. Severity of pain: At its worst the pain was moderate in the emergency department the pain is unchanged. The patient has experienced similar episodes in the past, a few times. Historical: - Allergies: 11:20 No Known Allergies; iw - Home Meds: 11:20 aspirin 81 mg Oral TbEC 1 tab once daily [Active]; clopidogrel 75 mg Oral tab 1 tab iw once daily [Active]; losartan 50 mg Oral tab 1 tab once daily [Active]; metoprolol tartrate 25 mg Oral tab 1 tab 2 times per day [Active]; simvastatin 20 mg Oral tab 1 tab once daily [Active]; - PMHx: 11:20 Diabetes - IDDM; Hyperlipidemia; Hypertension; Myocardial infarction; iw - PSHx: 11:20 cardiac valve; iw - Immunization history:: Adult Immunizations up to date. - Ebola Screening: : Patient negative for fever greater than or equal to 101.5 degrees Fahrenheit, and additional compatible Ebola Virus Disease symptoms Patient denies exposure to infectious person Patient denies travel to an Ebola-affected area in the 21 days before illness onset No symptoms or risks identified at this time. - Social history:: Smoking status: Patient/guardian denies using tobacco. ROS: 13:44 All other systems are negative. gs Exam: 13:44 Head/Face: Normocephalic, atraumatic. Eyes: Pupils equal round and reactive to light, gs extra-ocular motions intact. Lids and lashes normal. Conjunctiva and sclera are non-icteric and not injected. Cornea within normal limits. Periorbital areas with no swelling, redness, or edema. ENT: Nares patent. No nasal discharge, no septal abnormalities noted. Tympanic membranes are normal and external auditory canals are clear. Oropharynx with no redness, swelling, or masses, exudates, or evidence of obstruction, uvula midline. Mucous membranes moist. Neck: Trachea midline, no thyromegaly or masses palpated, and no cervical lymphadenopathy. Supple, full range of motion without nuchal rigidity, or vertebral point tenderness. No Meningismus. Chest/axilla: Normal chest wall appearance and motion. Nontender with no deformity. No lesions are appreciated. Cardiovascular: Regular rate and rhythm with a normal S1 and S2. No gallops, murmurs, or rubs. Normal PMI, no JVD. No pulse deficits. Respiratory: Lungs have equal breath sounds bilaterally, clear to auscultation and percussion. No rales, rhonchi or wheezes noted. No increased work of breathing, no retractions or nasal flaring. Back: No spinal tenderness. No costovertebral tenderness. Full range of motion. Skin: Warm, dry with normal turgor. Normal color with no rashes, no lesions, and no evidence of cellulitis. MS/ Extremity: Pulses equal, no cyanosis. Neurovascular intact. Full, normal range of motion. Neuro: Awake and alert, GCS 15, oriented to person, place, time, and situation. Cranial nerves II-XII grossly intact. Motor strength 5/5 in all extremities. Sensory grossly intact. Cerebellar exam normal. Normal gait. 13:44 Constitutional: The patient appears alert, awake. 13:44 Abdomen/GI: Palpation: moderate abdominal tenderness, in the left lower quadrant. Vital Signs: 11:20 BP 139 / 74; Pulse 81; Resp 16; Temp 98.8; Pulse Ox 97% on R/A; Weight 72.57 kg; Height iw 5 ft. 2 in. (157.48 cm); Pain 6/10; 13:00 BP 169 / 78; Pulse 79; Resp 16 S; Pulse Ox 99% on R/A; ca1 14:15 BP 141 / 84; Pulse 74; Resp 16 S; Pulse Ox 96% on R/A; ca1 14:48 BP 131 / 68; Pulse 72; Resp 16 S; Temp 98.5(O); Pulse Ox 97% on R/A; ca1 11:20 Body Mass Index 29.26 (72.57 kg, 157.48 cm) iw MDM: 12:15 Patient medically screened. gs 13:44 Differential diagnosis: diverticulitis, non-specific abd pain, pancreatitis. Data gs reviewed: vital signs, nurses notes, lab test result(s), radiologic studies. Counseling: I had a detailed discussion with the patient and/or guardian regarding: the historical points, exam findings, and any diagnostic results supporting the discharge/admit diagnosis, lab results, radiology results, the need for outpatient follow up. Response to treatment: the patient's symptoms have markedly improved after treatment, and as a result, I will discharge patient. 04/30 12:40 Order name: Urine Microscopic Only 04/30 12:40 Order name: Basic Metabolic Panel; Complete Time: 14:11 04/30 12:40 Order name: CBC with Diff; Complete Time: 13:47 04/30 12:40 Order name: Hepatic Function; Complete Time: 14:11 04/30 12:40 Order name: Lipase; Complete Time: 14:11 04/30 13:21 Order name: Urine Dipstick--Ancillary (enter results); Complete Time: 13:47 04/30 12:40 Order name: Urine Dipstick-Ancillary (obtain specimen); Complete Time: 13:49 04/30 12:40 Order name: IV Saline Lock; Complete Time: 13:49 04/30 12:40 Order name: Labs collected and sent; Complete Time: 13:49 04/30 12:40 Order name: CT Stone Protocol; Complete Time: 13:32 gs Administered Medications: 13:54 Drug: Dulcolax Suppository 10 mg Route: MO; ca1 14:13 Follow up: Response: BM x 1 ca1 Disposition: 04/30/19 13:38 Discharged to Home. Impression: Lower abdominal pain, unspecified. - Condition is Stable. - Discharge Instructions: Abdominal Pain, Adult. - Prescriptions for Miralax 17 gram/dose Oral - take 1 packet by ORAL route 2 times per day for 5 days dilute powder in 8 ounces of water or juice; 1 bottle. - Medication Reconciliation Form, Thank You Letter, Antibiotic Education, Prescription Opioid Use form. - Follow up: Private Physician; When: 2 - 3 days; Reason: Re-evaluation by your physician. Signatures: Dispatcher [employer] Shirley Pitt RN RN iw Sina Stone MD MD gs Janey, MARK Miranda RN ca1 Corrections: (The following items were deleted from the chart) 14:49 13:38 04/30/2019 13:38 Discharged to Home. Impression: Lower abdominal pain, ca1 unspecified. Condition is Stable. Forms are Medication Reconciliation Form, Thank You Letter, Antibiotic Education, Prescription Opioid Use. Follow up: Private Physician; When: 2 - 3 days; Reason: Re-evaluation by your physician. gs
[2019-04-30 14:03] LABS: Albumin 3.6 g/dL (3.4-5.0); Bilirubin Direct 0.2 mg/dL (0-0.2); Bilirubin Total 0.9 mg/dL (0.2-1.0); Potassium 4.5 mmol/L (3.5-5.1); Protein, Total 8.3 g/dL (6.4-8.2)
[2019-04-30] MEDS ORDERED: BISACODYL 10 MG RECTAL SUPP ONE (14:06)
[2019-04-30 14:46] LABS: Urine Bacteria <20 /HPF (NONE SEEN); Urine Culture Reflex Order NOT NEEDED; Urine RBC <5 /HPF (NONE SEEN)
[2019-04-30 15:08] VITALS: BP 131/68; TEMP 98.5; O2SAT 97
== END 2019-04-30 14:49 | disposition home or self-care (01) ==
LOC: ER 11:05
DX: R10.32 Left lower quadrant pain (principal); I10 Essential (primary) hypertension; E11.9 Type 2 diabetes mellitus without complications; E78.5 Hyperlipidemia, unspecified; Z79.82 Long term (current) use of aspirin; Z95.4 Presence of other heart-valve replacement
CPT/HCPCS: 36415; 74176; 76377; 80048; 80076; 81003; 81015; 83690; 85025; 99284

== ENCOUNTER 2021-03-10 13:33 | Emergency (ER) | payer MEDICARE ==
--- NOTE | 2021-03-10 16:27 | RAD REPORT ---
EXAM DESCRIPTION: Nisreen Single View03/10/2021 4:22 pm CLINICAL HISTORY: Chest pain COMPARISON: 2019 FINDINGS: The lungs appear clear of acute infiltrate. The heart is normal size Postsurgical changes involve the chest. IMPRESSION: No acute abnormalities displayed
[2021-03-10 16:31] LABS: Absolute Lymphocytes (CBC) 1.7 K/uL (0.7-4.9); Basophils % 0.6 % (0-1.3); Lymphocytes % 16.1 % (15.3-44.8); MPV 7.4 fL (7.6-11.3); RBC Red Blood Cell Count 4.48 M/uL (4.33-5.43)
[2021-03-10 16:40] LABS: Protime INR 0.99
[2021-03-10 16:46] LABS: ALT/SGPT 18 U/L (12-78); AST/SGOT 11 U/L (15-37); Albumin 3.4 g/dL (3.4-5.0); Alkaline Phosphatase 113 U/L (45-117); BUN Blood Urea Nitrogen 24 mg/dL (7-18); Bicarbonate 29 mmol/L (21-32); Bilirubin Direct 0.2 mg/dL (0-0.2); Bilirubin Total 0.6 mg/dL (0.2-1.0); Glucose Level 115 mg/dL (74-106); Magnesium 2.5 mg/dL (1.8-2.4); NT PRO-BNP 291 pg/mL (<125); Potassium 4.2 mmol/L (3.5-5.1); Protein, Total 8.1 g/dL (6.4-8.2); Sodium Level 141 mmol/L (136-145); Troponin (Emerg Dept Use Only) < 0.02 ng/mL (0.0-0.045)
--- NOTE | 2021-03-10 17:53 | ER ---
Nurse's Notes [facility] Name: Marvin Ricketts Age: 75 yrs Sex: Male : 1945 Arrival Date: 03/10/2021 Time: 13:37 Bed 14 Private MD: Diagnosis: Chest pain, unspecified;Dehydration Presentation: 03/10 13:42 Chief complaint: Patient states: R sided CP for 3-4 weeks. Seen at [place] 2 weeks ago ll1 for the same, states he hasn't gotten better yet so he came in. States he is weak, dizzy, and seeing black spots in vision. Coronavirus screen: Client denies travel out of the [place] in the last 14 days. At this time, the client does not indicate any symptoms associated with coronavirus-19. Ebola Screen: Patient denies travel to an Ebola-affected area in the 21 days before illness onset. Initial Sepsis Screen: Does the patient meet any 2 criteria? No. Patient's initial sepsis screen is negative. Does the patient have a suspected source of infection? No. Patient's initial sepsis screen is negative. Risk Assessment: Do you want to hurt yourself or someone else? Patient reports no desire to harm self or others. Onset of symptoms was February 07, 2021. 13:42 Method Of Arrival: Ambulatory ll1 13:42 Acuity: EUGENIO 3 ll1 Historical: - Allergies: 13:45 No Known Allergies; ll1 - PMHx: 13:45 Diabetes - IDDM; Hyperlipidemia; Hypertension; Myocardial infarction; ll1 - PSHx: 13:45 cardiac valve; ll1 - Immunization history:: Client reports receiving the 2nd dose of the Covid vaccine, Flu vaccine is up to date. - Social history:: Smoking status: Patient denies any tobacco usage or history of. Screenin:11 Abuse screen: Denies threats or abuse. Nutritional screening: No deficits noted. tr6 Tuberculosis screening: No symptoms or risk factors identified. Fall Risk None identified. Assessment: 16:20 General: Appears in no apparent distress. Behavior is calm, cooperative, appropriate tr6 for age. Pain: Complains of pain in c/o right sided cp radiating to right side of back. pt reports that this pain has been around for a while Pain radiates to c/o cp Pain currently is 2 out of 10 on a pain scale. Quality of pain is described as Pain began gradually, Is intermittent, Alleviated by rest. Neuro: No deficits noted. Cardiovascular: Reports chest pain. Respiratory: No deficits noted. GI: No deficits noted. : No deficits noted. EENT: No deficits noted. Derm: No deficits noted. Musculoskeletal: No deficits noted. 17:58 Reassessment: No changes from previously documented assessment. Patient and/or family tr6 updated on plan of care and expected duration. Pain level reassessed. Patient is alert, oriented x 3, equal unlabored respirations, skin warm/dry/pink. Vital Signs: 13:42 BP 147 / 86; Pulse 85; Resp 18; Temp 97.8; Pulse Ox 100% ; Weight 72.57 kg; Height 5 ll1 ft. 3 in. (160.02 cm); Pain 5/10; 16:49 BP 150 / 84; Pulse 82; Resp 18; Pulse Ox 100% ; tr6 18:11 BP 147 / 80; Pulse 20; Resp 81; Pulse Ox 96% ; tr6 13:42 Body Mass Index 28.34 (72.57 kg, 160.02 cm) ll1 Vitals: 16:49 Cardiac Rhythm Assessment Regular. tr6 ED Course: 13:37 Patient arrived in ED. as 13:45 Triage completed. ll1 13:46 Arm band placed on. ll1 13:49 EKG completed in triage. Results shown to MD. ll1 15:12 Patient placed in an exam room, on a stretcher. ll1 15:13 Sonny Gomez NP is PHCP. pm1 15:13 Bang Lazar MD is Attending Physician. pm1 16:20 Inserted saline lock: 20 gauge in right forearm, using aseptic technique. Blood dh4 collected. 16:24 XRAY Chest (1 view) In Process Unspecified. EDMS 18:11 Patient has correct armband on for positive identification. Placed in gown. Bed in low tr6 position. Call light in reach. Side rails up X 1. occupational health specialist on. Pulse ox on. NIBP on. 18:12 No provider procedures requiring assistance completed. IV discontinued, intact, tr6 bleeding controlled, No redness/swelling at site. Patient maintains SpO2 saturation greater than 95% on room air. Administered Medications: 17:57 Drug: NS 0.9% 500 ml Route: IV; Rate: bolus; Site: right forearm; tr6 Outcome: 17:52 Discharge ordered by . pm1 18:12 Discharged to home tr6 18:12 Condition: good 18:12 Discharge instructions given to patient, family, significant other. 18:54 Patient left the ED. tr6 Signatures: Dispatcher [employer] Sarahy Rosenthal Patrick, NP PLATEN GRINDER pm1 Chris Beck 4 Goran Littlejohn RN RN 1 Valerie Lin RN RN tr6 Corrections: (The following items were deleted from the chart) 16:53 16:20 Pain: Pain radiates to c/o cp Pain currently is 2 out of 10 on a pain scale. tr6 Quality of pain is described as Pain began gradually, Is intermittent, Alleviated by rest, tr6
--- NOTE | 2021-03-10 17:53 | EDPHYS ---
Physician Documentation [facility] Name: Marvin Ricketts Age: 75 yrs Sex: Male : 1945 Arrival Date: 03/10/2021 Time: 13:37 Bed 14 Private MD: ED Physician Bang Lazar HPI: 03/10 15:59 This 75 yrs old Male presents to ER via Ambulatory with complaints of Chest pm1 Pain, Back Pain. 15:59 The patient or guardian reports chest pain that is located primarily in the anterior pm1 aspect of right upper chest. Onset: 3-4 weeks ago. The pain does not radiate. 15:59 Associated signs and symptoms: Pertinent positives: dizziness, generalized weakness. pm1 Modifying factors: The symptoms are alleviated by nothing. the symptoms are aggravated by nothing. 15:59 The chest pain is described as sharp. Severity of pain: in the emergency department the pm1 pain has resolved. The patient has been recently seen by a physician: with similar presenting complaints, two weeks ago at [facility] for the same complaint and was discharged home. Patient reports seeing spots and dizziness with changes in position . Historical: - Allergies: 13:45 No Known Allergies; ll1 - PMHx: 13:45 Diabetes - IDDM; Hyperlipidemia; Hypertension; Myocardial infarction; ll1 - PSHx: 13:45 cardiac valve; ll1 - Immunization history:: Client reports receiving the 2nd dose of the Covid vaccine, Flu vaccine is up to date. - Social history:: Smoking status: Patient denies any tobacco usage or history of. ROS: 15:59 Constitutional: Negative for fever, chills, and weight loss. pm1 15:59 Respiratory: Negative for shortness of breath, cough, wheezing, and pleuritic chest pain, Abdomen/GI: Negative for abdominal pain, nausea, vomiting, diarrhea, and constipation, Back: Negative for injury and pain, MS/Extremity: Negative for injury and deformity, Skin: Negative for injury, rash, and discoloration. 15:59 Neck: Negative for injury, pain, and swelling. 15:59 Cardiovascular: Positive for chest pain, Negative for edema, palpitations. 15:59 Neuro: Positive for dizziness, generalized weakness, Negative for headache, numbness, tingling. Exam: 15:59 Constitutional: This is a well developed, well nourished patient who is awake, alert, pm1 and in no acute distress. Head/Face: Normocephalic, atraumatic. 15:59 Back: No spinal tenderness. No costovertebral tenderness. Full range of motion. 15:59 Skin: Warm, dry with normal turgor. Normal color with no rashes, no lesions, and no evidence of cellulitis. MS/ Extremity: Pulses equal, no cyanosis. Neurovascular intact. Full, normal range of motion. 15:59 Chest/axilla: Inspection: normal, Palpation: tenderness, of the anterior aspect of right upper chest, that totally reproduces the patient's complaints. 15:59 Cardiovascular: Exam negative for acute changes, Rate: normal, Rhythm: regular, Pulses: no pulse deficits are appreciated, Heart sounds: normal. 15:59 Respiratory: Exam negative for acute changes, the patient does not display signs of respiratory distress, Respirations: normal, Breath sounds: are clear throughout. 15:59 Abdomen/GI: Exam negative for acute changes, Inspection: abdomen appears normal, Palpation: abdomen is soft and non-tender, in all quadrants. 15:59 Neuro: Exam negative for acute changes, Orientation: is normal, Mentation: is normal, Motor: is normal, moves all fours. Vital Signs: 13:42 BP 147 / 86; Pulse 85; Resp 18; Temp 97.8; Pulse Ox 100% ; Weight 72.57 kg; Height 5 ll1 ft. 3 in. (160.02 cm); Pain 5/10; 16:49 BP 150 / 84; Pulse 82; Resp 18; Pulse Ox 100% ; tr6 18:11 BP 147 / 80; Pulse 20; Resp 81; Pulse Ox 96% ; tr6 13:42 Body Mass Index 28.34 (72.57 kg, 160.02 cm) ll1 MDM: 15:14 Patient medically screened. pm1 17:39 Data reviewed: vital signs. Data interpreted: Pulse oximetry: on room air is 100 %. pm1 Interpretation: normal. 17:52 Counseling: I had a detailed discussion with the patient and/or guardian regarding: the pm1 historical points, exam findings, and any diagnostic results supporting the discharge/admit diagnosis, lab results, radiology results, the need for outpatient follow up, to return to the emergency department if symptoms worsen or persist or if there are any questions or concerns that arise at home. 03/10 15:38 Order name: Basic Metabolic Panel; Complete Time: 16:51 pm1 03/10 15:38 Order name: CBC with Diff; Complete Time: 16:38 pm1 03/10 15:38 Order name: LFT's; Complete Time: 16:51 pm1 03/10 15:38 Order name: Magnesium; Complete Time: 16:51 pm1 03/10 15:38 Order name: NT PRO-BNP; Complete Time: 16:51 pm1 03/10 15:38 Order name: PT-INR; Complete Time: 17:12 pm1 03/10 13:49 Order name: EKG; Complete Time: 13:50 ll1 03/10 13:49 Order name: EKG - Nurse/Tech; Complete Time: 13:49 ll1 03/10 15:38 Order name: Troponin (emerg Dept Use Only); Complete Time: 16:51 pm1 03/10 15:38 Order name: XRAY Chest (1 view); Complete Time: 16:38 pm1 03/10 15:38 Order name: Cardiac monitoring; Complete Time: 16:25 pm1 03/10 15:44 Order name: TSH 03/10 15:45 Order name: Thyroid Stimulating Hormone; Complete Time: 17:12 EDMS 03/10 15:38 Order name: IV Saline Lock; Complete Time: 16:19 pm1 03/10 15:38 Order name: Labs collected and sent; Complete Time: 16:25 pm1 03/10 15:38 Order name: O2 Per Protocol; Complete Time: 16:25 pm03/10 15:38 Order name: O2 Sat Monitoring; Complete Time: 16:26 pm1 Administered Medications: 17:57 Drug: NS 0.9% 500 ml Route: IV; Rate: bolus; Site: right forearm; tr6 Disposition: 03/11 07:24 Co-signature as Attending Physician, Bang Lazar MD I agree with the assessment and zohreh plan of care. Disposition: 03/10/21 17:52 Discharged to Home. Impression: Chest pain, unspecified, Dehydration. - Condition is Stable. - Discharge Instructions: Nonspecific Chest Pain, Dehydration, Elderly, Rehydration, Elderly. - Medication Reconciliation Form, Thank You Letter, Antibiotic Education, Prescription Opioid Use form. - Follow up: Emergency Department; When: As needed; Reason: Worsening of condition. Follow up: Private Physician; When: 2 - 3 days; Reason: Recheck today's complaints, Continuance of care, Re-evaluation by your physician. - Problem is new. - Symptoms have improved. Signatures: Dispatcher [employer] EDBang De Santiago MD MD cha Marinas, Patrick, FREIGHT CAR REPAIRER FREIGHT [employer] REPAIRER pm1 Goran Littlejohn RN RN ll1 Valerie Lin RN RN tr6 Corrections: (The following items were deleted from the chart) 03/10 17:48 17:45 The patient or guardian reports chest pain that is located primarily in the pm1 anterior aspect of right upper chest, pm1 17:48 17:45 Onset: 3-4 weeks ago, pm1 pm1 17:48 17:45 The pain does not radiate. pm1 pm1 18:54 17:52 03/10/2021 17:52 Discharged to Home. Impression: Chest pain, unspecified; tr6 Dehydration. Condition is Stable. Forms are Medication Reconciliation Form, Thank You Letter, Antibiotic Education, Prescription Opioid Use. Follow up: Emergency Department; When: As needed; Reason: Worsening of condition. Follow up: Private Physician; When: 2 - 3 days; Reason: Recheck today's complaints, Continuance of care, Re-evaluation by your physician. Problem is new. Symptoms have improved. pm1
[2021-03-10] MEDS ORDERED: NA CHLORIDE 0.9% 500 ML ONE (18:14)
[2021-03-10 19:00] VITALS: TEMP 97.8
[2021-03-10 19:05] VITALS: BP 147/80; O2SAT 96
--- NOTE | 2021-03-11 11:15 | EKG ---
Test Date: 2021-03-10 Test Time: 13:50:05 Tonnage Compilation Clerk: DYLAN MEASUREMENT RESULTS: Intervals: Rate: 79 SC: 160 QRSD: 100 QT: 400 QTc: 458 [place]: P: 9 SC: 160 QRS: -52 T: 21 INTERPRETIVE STATEMENTS: Normal sinus rhythm Left axis deviation Abnormal ECG Compared to ECG 01/15/2019 12:42:45 No significant changes Electronically Signed On 03-11-21 11:13:32 CDT by Ruben Padron
== END 2021-03-10 18:54 | disposition home or self-care (01) ==
LOC: ER 13:33
DX: E86.0 Dehydration (principal); I10 Essential (primary) hypertension; Z95.818 Presence of other cardiac implants and grafts
CPT/HCPCS: 93005; 85025; 80048; 36415; 83735; 85610; 80076; 84443; 84484; 83880; 71045; 99285; J7040

== ENCOUNTER 2021-03-29 14:48 | Emergency (ER) | payer MEDICARE ==
--- NOTE | 2021-03-29 15:19 | RAD REPORT ---
EXAM DESCRIPTION: CT - Ct Stroke Brain Wo Cont - 03/29/2021 3:08 pm CLINICAL HISTORY: tia COMPARISON: 2007 TECHNIQUE: Computed axial tomography of the head was obtained. All CT scans are performed using dose optimization technique as appropriate and may include automated exposure control or mA/KV adjustment according to patient size. FINDINGS: An intracranial bleed is not seen . 2.2 centimeter low-density areas present within the l eft occipital lobe The ventricles are normal in caliber. No extra-axial fluid collection is noted. Mild to moderate low-density within periventricular, deep and subcortical white matter likely ischemi c changes secondary to small vessel disease Fluid within the sinuses/ mastoids is not seen. IMPRESSION: 2.2 centimeter low-density area within the left occipital lobe consistent with an infarc t. It has more of the appearance of being old than acute. If patient continues have symptoms to suggest an acute CVA then MRI would be recommended Doctor Lazar of the emergency room was notified at 3:05 p.m. March 29, 2021
[2021-03-29 15:22] LABS: Absolute Lymphocytes (CBC) 1.8 K/uL (0.7-4.9); Basophils % 0.6 % (0-1.3); Lymphocytes % 20.7 % (15.3-44.8); MPV 7.5 fL (7.6-11.3); RBC Red Blood Cell Count 4.53 M/uL (4.33-5.43)
[2021-03-29 15:28] LABS: Protime INR 0.98
[2021-03-29] MEDS ORDERED: NA CHLORIDE 0.9% 1,000 ML ONE (15:35)
[2021-03-29] MEDS ORDERED: FOLIC ACID 5 MG/ML VIAL ONE (15:37)
[2021-03-29 15:40] LABS: ALT/SGPT 21 U/L (12-78); AST/SGOT 12 U/L (15-37); Albumin 3.3 g/dL (3.4-5.0); Alkaline Phosphatase 148 U/L (45-117); BUN Blood Urea Nitrogen 21 mg/dL (7-18); Bicarbonate 30 mmol/L (21-32); Bilirubin Direct 0.1 mg/dL (0-0.2); Bilirubin Total 0.7 mg/dL (0.2-1.0); Glucose Level 232 mg/dL (74-106); Magnesium 2.5 mg/dL (1.8-2.4); NT PRO-BNP 218 pg/mL (<125); Potassium 4.8 mmol/L (3.5-5.1); Protein, Total 7.8 g/dL (6.4-8.2); Sodium Level 138 mmol/L (136-145); Troponin (Emerg Dept Use Only) < 0.02 ng/mL (0.0-0.045)
--- NOTE | 2021-03-29 15:45 | ER ---
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 his grabbed him and he began to shake. Coronavirus screen: Client denies travel out of the [place] in the last 14 days. Ebola Screen: Patient negative for fever greater than or equal to 101.5 degrees Fahrenheit, and additional compatible Ebola Virus Disease symptoms Patient denies exposure to infectious person. Patient denies travel to an Ebola-affected area in the 21 days before illness onset. Initial Sepsis Screen: Does the patient meet any 2 criteria? No. Patient's initial sepsis screen is negative. Does the patient have a suspected source of infection? No. Patient's initial sepsis screen is negative. Risk Assessment: Do you want to hurt yourself or someone else? Patient reports no desire to harm self or others. 15:29 Acuity: EUGENIO 2 tr6 15:29 Method Of Arrival: Wheelchair tr6 Triage Assessment: 15:30 General: Appears in no apparent distress. comfortable, Behavior is calm, cooperative, bp appropriate for age. Pain: Denies pain. EENT: No deficits noted. Neuro: Level of Consciousness is awake, alert, obeys commands, Oriented to Appropriate for age Medical Radiation Dosimetrist are equal bilaterally Moves all extremities. Full function. Cardiovascular: No deficits noted. Respiratory: No deficits noted. GI: No signs and/or symptoms were reported involving the gastrointestinal system. : No signs and/or symptoms were reported regarding the genitourinary system. Derm: No deficits noted. Musculoskeletal: No deficits noted. Historical: - Allergies: 16:09 No Known Allergies; bp - Home Meds: 16:09 aspirin 81 mg Oral TbEC 1 tab once daily [Active]; simvastatin 20 mg Oral tab 1 tab bp once daily [Active]; clopidogrel 75 mg Oral tab 1 tab once daily [Active]; losartan 50 mg Oral tab 1 tab once daily [Active]; metoprolol tartrate 25 mg Oral tab 1 tab 2 times per day [Active]; - PMHx: 16:09 Diabetes - IDDM; Hyperlipidemia; Hypertension; Myocardial infarction; bp - Immunization history:: Adult Immunizations up to date. - Social history:: Smoking status: unknown. - Family history:: not pertinent. Screenin:28 Abuse screen: Denies threats or abuse. Denies injuries from another. Nutritional tr6 screening: No deficits noted. Tuberculosis screening: No symptoms or risk factors identified. Fall Risk Assessment: 15:24 General: Appears in no apparent distress. comfortable, well groomed, Behavior is calm, tr6 cooperative, appropriate for age, Reports feeling weak suddenly. Pain: Denies pain. Neuro: No deficits noted. Seizure activity pts reports that she was sitting with pt at the table and pt began falling to his right side. pts states that he began shaking as she was trying to hold him up. pts also reports that pt was breathing very heavily. At this time pt is resting comfortably in the bed. talking, AOx3. denies pain. no seizure like activity. Cardiovascular: No deficits noted. Denies chest pain. Respiratory: No deficits noted. GI: Abdomen is round distended. : No deficits noted. EENT: Denies blurred vision. Derm: No deficits noted. Musculoskeletal: No deficits noted. b/l strength on all extremities and no drift noted. 16:15 Reassessment: PT RETURNED FROM [facility]. TRANSFER INITIATED. bp 16:59 Reassessment: REPORT GIVEN FOR TRANSFER. TRANSPORT PENDING. PT REMAINS NEURO INTACT AT bp THIS TIME. Vital Signs: 16:15 BP 159 / 77; Pulse 68; Resp 17; Temp 98.3; Pulse Ox 100% ; bp 16:59 BP 155 / 77; Pulse 69; Resp 16; Pulse Ox 97% ; bp ED Course: 14:50 Patient arrived in ED. am2 14:55 Bang Lazar MD is Attending Physician. zohreh 15:05 CT Stroke Brain w/o Contrast In Process Unspecified. EDMS 15:12 Raffi Templeton, MARK is Primary Nurse. bp 15:17 Inserted saline lock: 20 gauge in left antecubital area, using aseptic technique. Blood mt collected. 15:31 Triage completed. tr6 15:32 Arm band placed on right wrist. tr6 15:32 Patient has correct armband on for positive identification. Fall risk band placed. tr6 Placed in gown. Bed in low position. Call light in reach. Side rails up X 1. 16:[address] In Process Unspecified. EDMS 16:00 CT Head Angio In Process Unspecified. EDMS 16:11 XRAY Chest (1 view) In Process Unspecified. EDMS Administered Medications: 15:23 Drug: NS 0.9% 1000 ml Route: IV; Rate: 1 bolus; Site: left antecubital; tr6 15:24 Drug: foLIC Acid 1 mg Route: IVPB; Site: left antecubital; tr6 Outcome: 15:44 ER care complete, transfer ordered by . zohreh 18:29 Patient left the ED. tr6 Signatures: Dispatcher [employer] EDBang De Santiago MD MD cha Moreno, Amanda am2 Thompson, Moriah mt Peltier, Brian, RN RN Valerie Bustos, MARK RN tr6
--- NOTE | 2021-03-29 15:45 | EDPHYS ---
Physician Documentation [facility] Name: Marvin Ricketts Age: 75 yrs Sex: Male : 1945 Arrival Date: 03/29/2021 Time: 14:50 Bed 8 Private MD: ED Physician Bang Lazar HPI: 03/29 15:04 This 75 yrs old Male presents to ER via Unassigned with complaints of General zohreh Weakness, Numbness Of Arm. 15:04 This 75 yrs old Male presents to ER via Unassigned with complaints of General zohreh Weakness, Numbness Of Arm. 15:12 The patient's problem is reported as dysphasia, incoherent speech, expressive aphasia. zohreh Onset: The symptoms/episode began/occurred 30 minute(s) ago. Duration: This was a single incident. Context: the episode(s) was witnessed, by family. The symptoms are alleviated by nothing. The symptoms are aggravated by nothing. Associated signs and symptoms: The patient has no apparent associated signs or symptoms. Patient's baseline: Neuro: alert and fully oriented. The patient has experienced similar episodes in the past, several times. Historical: - Allergies: 16:09 No Known Allergies; bp - Home Meds: 16:09 aspirin 81 mg Oral TbEC 1 tab once daily [Active]; simvastatin 20 mg Oral tab 1 tab bp once daily [Active]; clopidogrel 75 mg Oral tab 1 tab once daily [Active]; losartan 50 mg Oral tab 1 tab once daily [Active]; metoprolol tartrate 25 mg Oral tab 1 tab 2 times per day [Active]; - PMHx: 16:09 Diabetes - IDDM; Hyperlipidemia; Hypertension; Myocardial infarction; bp - Immunization history:: Adult Immunizations up to date. - Social history:: Smoking status: unknown. - Family history:: not pertinent. ROS: 15:12 Constitutional: Negative for fever, chills, and weight loss, Eyes: Negative for injury, zohreh pain, redness, and discharge, ENT: Negative for injury, pain, and discharge, Neck: Negative for injury, pain, and swelling, Cardiovascular: Negative for chest pain, palpitations, and edema, Respiratory: Negative for shortness of breath, cough, wheezing, and pleuritic chest pain, Abdomen/GI: Negative for abdominal pain, nausea, vomiting, diarrhea, and constipation, Back: Negative for injury and pain, : Negative for injury, bleeding, discharge, and swelling, MS/Extremity: Negative for injury and deformity, Skin: Negative for injury, rash, and discoloration, Psych: Negative for depression, anxiety, suicide ideation, homicidal ideation, and hallucinations, Allergy/Immunology: Negative for hives, rash, and allergies, Endocrine: Negative for neck swelling, polydipsia, polyuria, polyphagia, and marked weight changes, Hematologic/Lymphatic: Negative for swollen nodes, abnormal bleeding, and unusual bruising. 15:12 Neuro: Positive for speech changes, weakness, of the right arm and right leg. Exam: 15:12 Constitutional: This is a well developed, well nourished patient who is awake, alert, zohreh and in no acute distress. Head/Face: Normocephalic, atraumatic. Eyes: Pupils equal round and reactive to light, extra-ocular motions intact. Lids and lashes normal. Conjunctiva and sclera are non-icteric and not injected. Cornea within normal limits. Periorbital areas with no swelling, redness, or edema. ENT: Nares patent. No nasal discharge, no septal abnormalities noted. Tympanic membranes are normal and external auditory canals are clear. Oropharynx with no redness, swelling, or masses, exudates, or evidence of obstruction, uvula midline. Mucous membranes moist. Neck: Trachea midline, no thyromegaly or masses palpated, and no cervical lymphadenopathy. Supple, full range of motion without nuchal rigidity, or vertebral point tenderness. No Meningismus. Chest/axilla: Normal chest wall appearance and motion. Nontender with no deformity. No lesions are appreciated. Cardiovascular: Regular rate and rhythm with a normal S1 and S2. No gallops, murmurs, or rubs. Normal PMI, no JVD. No pulse deficits. Respiratory: Lungs have equal breath sounds bilaterally, clear to auscultation and percussion. No rales, rhonchi or wheezes noted. No increased work of breathing, no retractions or nasal flaring. Abdomen/GI: Soft, non-tender, with normal bowel sounds. No distension or tympany. No guarding or rebound. No evidence of tenderness throughout. Back: No spinal tenderness. No costovertebral tenderness. Full range of motion. Male : Normal genitalia with no discharge or lesions. Skin: Warm, dry with normal turgor. Normal color with no rashes, no lesions, and no evidence of cellulitis. MS/ Extremity: Pulses equal, no cyanosis. Neurovascular intact. Full, normal range of motion. Neuro: Awake and alert, GCS 15, oriented to person, place, time, and situation. Cranial nerves II-XII grossly intact. Motor strength 5/5 in all extremities. Sensory grossly intact. Cerebellar exam normal. Normal gait. Psych: Awake, alert, with orientation to person, place and time. Behavior, mood, and affect are within normal limits. 15:12 Musculoskeletal/extremity: DVT Exam: No signs of deep vein thrombosis. no pain, no swelling, no tenderness, negative Homans' sign noted on exam, no appreciated bluish discoloration, no erythema, no increased warmth. 15:16 Radiologist reports: 2 cm lo density left occipital, old, 8 mm low density left zohreh temporal , age indeterminant 15:19 ECG was reviewed by the Attending Physician. [facility] Vital Signs: 16:15 BP 159 / 77; Pulse 68; Resp 17; Temp 98.3; Pulse Ox 100% ; bp 16:59 BP 155 / 77; Pulse 69; Resp 16; Pulse Ox 97% ; bp MDM: 15:00 Patient medically screened. [facility] 15:18 Differential diagnosis: CVA, TIA, Dementia. Data reviewed: vital signs, nurses notes, [facility] lab test result(s), EKG, radiologic studies, CT scan, plain films. Data interpreted: monitoring engineer: rate is 73 beats/min, rhythm is regular, Pulse oximetry: on room air is 100 %. Test interpretation: by ED physician or midlevel provider: ECG, plain radiologic studies. Counseling: I had a detailed discussion with the patient and/or guardian regarding: the historical points, exam findings, and any diagnostic results supporting the discharge/admit diagnosis, lab results, radiology results, the need to transfer to another facility, for higher level of care, [facility] does not immediately have the required specialist. 15:37 ED course: symptoms began at 8am, dizzy, weak, never got better until he tried to stand zohreh up, almost fell , weak all over , non focal, no aphasia. 03/29 14:58 Order name: Basic Metabolic Panel; Complete Time: 15:45 zohreh 03/29 14:58 Order name: CBC with Diff; Complete Time: 15:45 [facility] 03/29 14:58 Order name: LFT's; Complete Time: 15:45 [facility] 03/29 14:58 Order name: Magnesium; Complete Time: 15:45 [facility] 03/29 14:58 Order name: NT PRO-BNP; Complete Time: 15:45 [facility] 03/29 14:58 Order name: PT-INR; Complete Time: 15:45 [facility] 03/29 14:57 Order name: Neck Angio CT; Complete Time: 17:02 [facility] 03/29 14:58 Order name: Troponin (emerg Dept Use Only); Complete Time: 15:45 [facility] 03/29 14:58 Order name: XRAY Chest (1 view); Complete Time: 17:02 [facility] 03/29 14:58 Order name: CT Stroke Brain w/o Contrast; Complete Time: 15:45 [facility] 03/29 14:58 Order name: CT Head Angio; Complete Time: 17:02 [facility] 03/29 17:10 Order name: SARS-COV-2 RT PCR; Complete Time: 17:10 EDMN 03/29 14:58 Order name: EKG; Complete Time: 14:58 [facility] 03/29 14:58 Order name: Cardiac monitoring; Complete Time: 15:12 [facility] 03/29 14:58 Order name: EKG - Nurse/Tech; Complete Time: 15:12 [facility] 03/29 14:58 Order name: IV Saline Lock; Complete Time: 15:17 [facility] 03/29 14:58 Order name: Labs collected and sent; Complete Time: 15:12 [facility] 03/29 14:58 Order name: O2 Per Protocol; Complete Time: 15:12 [facility] 03/29 14:58 Order name: O2 Sat Monitoring; Complete Time: 15:12 [facility] EC:19 Rate is 73 beats/min. Rhythm is regular. QRS Morning Sun is Normal. MA interval is normal. QRS zohreh interval is normal. QT interval is normal. No Q waves. T waves are Normal. No ST changes noted. Clinical impression: Normal ECG and No evidence of ischemia. Interpreted by me. Reviewed by me. Administered Medications: 15:23 Drug: NS 0.9% 1000 ml Route: IV; Rate: 1 bolus; Site: left antecubital; tr6 15:24 Drug: foLIC Acid 1 mg Route: IVPB; Site: left antecubital; tr6 Disposition: 03/29/21 15:44 Transfer ordered to [facility]. Diagnosis are Dizziness and giddiness, Syncope and collapse - near, Essential (primary) hypertension, Type 2 diabetes mellitus, Occlusion and stenosis of right carotid artery - internal, right, Occlusion and stenosis of left vertebral artery - distal high grade occlusion. - Reason for transfer: Higher level of care. - Accepting physician is to [facility], [facility] , neuro. - Condition is Fair. - Problem is new. - Symptoms have improved. Signatures: Dispatcher [employer] EDMN Bang Lazar MD MD cha Peltier, Brian RN RN bp Valerie Lin RN RN tr6 Corrections: (The following items were deleted from the chart) 15:46 15:44 03/29/2021 15:44 Transfer ordered to [facility]. zohreh Diagnosis is Dizziness and giddiness; Syncope and collapse - near. Reason for transfer: Higher level of care. Accepting physician is to [facility], [facility] , neuro. Condition is Fair. Problem is new. Symptoms have improved. zohreh 16:29 15:48 CORONAVIRUS+MR.LAB.BELTRANZ ordered. [facility] EDMN 17:05 15:46 03/29/2021 15:44 Transfer ordered to [facility]. zohreh Diagnosis is Dizziness and giddiness; Syncope and collapse - near; Essential (primary) hypertension; Type 2 diabetes mellitus. Reason for transfer: Higher level of care. Accepting physician is to [facility], [facility] , neuro. Condition is Fair. Problem is new. Symptoms have improved. zohreh 18:29 17:05 03/29/2021 15:44 Transfer ordered to [facility]. tr6 Diagnosis is Dizziness and giddiness; Syncope and collapse - near; Essential (primary) hypertension; Type 2 diabetes mellitus; Occlusion and stenosis of right carotid artery - internal, right; Occlusion and stenosis of left vertebral artery - distal high grade occlusion. Reason for transfer: Higher level of care. Accepting physician is to [facility], [facility] , neuro. Condition is Fair. Problem is new. Symptoms have improved. zohreh
--- NOTE | 2021-03-29 16:35 | RAD REPORT ---
EXAM DESCRIPTION: iVvien Angio03/29/2021 4:00 pm CLINICAL HISTORY: CVA COMPARISON: None TECHNIQUE: 50 cc Isovue 370 was administered intravenously. 3D MIP reconstruction performed All CT scans are performed using dose optimization technique as appropriate and may include automated exposure control or mA/KV adjustment according to patient size. FINDINGS: A long segment of mild to moderate narrowing involves cervical segment of the right internet marketing intern al carotid artery. Moderate stenosis involves the petrous segment of the right internal carotid arter y. Severe narrowing involves the cavernous segment of the right internal carotid artery. Calcified pl aque is present within the the terminates right internal carotid artery resulting in a high-grade everett nosis. Mild calcified plaque is present within the distal left internal carotid artery. Minimal plaque is present within the common carotid and external carotid arteries bilaterally. The left vertebral artery terminates in the PICA IMPRESSION: Multiple areas of stenosis involving the right internal carotid artery as described arian lee. NASCET criteria used. Mild 0-49% stenosis Moderate 50-69% stenosis Severe 70-99% stenosis
--- NOTE | 2021-03-29 16:55 | RAD REPORT ---
EXAM DESCRIPTION: CTHead angio03/29/2021 4:00 pm CLINICAL HISTORY: CVA COMPARISON: None TECHNIQUE: CT angiogram of the head was obtained. 3D MIPS reconstruction performed. All CT scans are performed using dose optimization technique as appropriate and may include automated exposure control or mA/KV adjustment according to patient size. FINDINGS: Please refer to the right internal carotid artery and distal left vertebral artery finding s on the CT neck angiogram on today's date. The basilar, anterior cerebral, middle cerebral and posterior cerebral arteries do not demonstrate a significant stenosis. No aneurysm seen. origin of the right posterior cerebral artery IMPRESSION: Please refer to the distal right internal carotid artery and distal left vertebral arter y findings on the CT neck angiogram on today's date. Otherwise, unremarkable exam
--- NOTE | 2021-03-29 16:59 | RAD REPORT ---
EXAM DESCRIPTION: Nisreen Single View03/29/2021 4:12 pm CLINICAL HISTORY: Cough COMPARISON: February 2021 FINDINGS: The lungs appear clear of acute infiltrate. The heart is normal size. Postsurgical change s involve the chest IMPRESSION: No acute abnormalities displayed
[2021-03-29 18:40] VITALS: TEMP 98.3
[2021-03-29 18:42] VITALS: BP 155/77; O2SAT 97
== END 2021-03-29 18:29 | disposition short-term general hospital (02) ==
LOC: ER 14:48
DX: I65.21 Occlusion and stenosis of right carotid artery (principal); I65.02 Occlusion and stenosis of left vertebral artery; R55 Syncope and collapse; I10 Essential (primary) hypertension; E11.9 Type 2 diabetes mellitus without complications; I25.2 Old myocardial infarction; Z20.822 Contact with and (suspected) exposure to COVID-19; Z79.82 Long term (current) use of aspirin
CPT/HCPCS: 93005; 85025; 80048; 36415; 83735; 85610; 80076; 84484; 83880; 70496; 70498; 70450; 71045; 96374; 99284; U0003; Q9967; J7030

== ENCOUNTER 2022-12-04 09:46 | Emergency (ER) | payer MEDICARE, OTHER ==
[2022-12-04 11:42] LABS: SARS-COV-2 RT PCR NEGATIVE (NEGATIVE)
--- NOTE | 2022-12-04 12:03 | ER ---
Nurse's Notes [facility] Name: Marvin Ricketts Age: 77 yrs Sex: Male : 1945 Arrival Date: 12/04/2022 Time: 09:47 Bed DIS6 Private MD: Diagnosis: Acute pharyngitis, unspecified Presentation: 12/04 09:54 Chief complaint: Patient states: cough, sore throat, since last night, he was exposed iw to COVID. Coronavirus screen: Client presents with at least one sign or symptom that may indicate coronavirus-19. Ebola Screen: Patient negative for fever greater than or equal to 101.5 degrees Fahrenheit, and additional compatible Ebola Virus Disease symptoms Patient denies exposure to infectious person. Patient denies travel to an Ebola-affected area in the 21 days before illness onset. No symptoms or risks identified at this time. Initial Sepsis Screen: Does the patient meet any 2 criteria? No. Patient's initial sepsis screen is negative. Does the patient have a suspected source of infection? No. Patient's initial sepsis screen is negative. Risk Assessment: Do you want to hurt yourself or someone else? Patient reports no desire to harm self or others. Onset of symptoms was December 03, 2022. 09:54 Method Of Arrival: Ambulatory iw 09:54 Acuity: EUGENIO 4 iw Historical: - Allergies: 09:55 No Known Allergies; iw - Home Meds: 09:55 aspirin 81 mg Oral TbEC 1 tab once daily [Active]; clopidogrel 75 mg Oral tab 1 tab iw once daily [Active]; losartan 50 mg Oral tab 1 tab once daily [Active]; metoprolol tartrate 25 mg Oral tab 1 tab 2 times per day [Active]; simvastatin 20 mg Oral tab 1 tab once daily [Active]; - PMHx: 09:55 Diabetes - IDDM; Hyperlipidemia; Hypertension; Myocardial infarction; iw - Immunization history:: Client reports receiving the 2nd dose of the Covid vaccine. - Social history:: Smoking status: . Screenin:21 [facility] ED Fall Risk Assessment (Adult) History of falling in the last 3 months, kr3 including since admission No falls in past 3 months (0 pts) Confusion or Disorientation No (0 pts) Intoxicated or Sedated No (0 pts) Impaired Gait No (0 pts) Mobility Assist Device Used No (0 pt) Altered Elimination No (0 pt) Score/Fall Risk Level 0 - 2 = Low Risk. Abuse screen: Denies threats or abuse. Nutritional screening: No deficits noted. Tuberculosis screening: No symptoms or risk factors identified. Assessment: 12:20 General: Appears in no apparent distress. comfortable, Behavior is calm, cooperative, kr3 appropriate for age. 12:21 Respiratory: Airway is patent Respiratory effort is even, unlabored, Respiratory kr3 pattern is regular, symmetrical. 12:21 Respiratory: Breath sounds are clear. kr3 12:23 EENT: Throat. kr3 Vital Signs: 09:56 BP 138 / 86; Pulse 71; Resp 16; Temp 99.1(O); Pulse Ox 96% on R/A; iw 12:20 BP 139 / 67; Pulse 68; Resp 18; Pulse Ox 99% on R/A; kr3 ED Course: 09:47 Patient arrived in ED. am2 09:47 Leonel Stephens PA is PHCP. dereje 09:47 Minor Yeboah DO is Attending Physician. [facility] 09:55 Triage completed. iw 09:56 Arm band placed on. iw 10:00 Call light in reach. Side rails up X 1. kr3 10:23 Supriya Pearce, MARK is Primary Nurse. kr3 10:52 Strep Sent. kr3 10:52 COVID-19/FLU A+B Sent. kr3 12:21 No provider procedures requiring assistance completed. Patient did not have IV access kr3 during this emergency room visit. Administered Medications: No medications were administered Medication: 12:23 VIS not applicable for this client. kr3 Outcome: 12:02 Discharge ordered by . rikki 12:22 Discharged to home ambulatory. kr3 12:22 Condition: stable 12:22 Discharge instructions given to patient, Instructed on discharge instructions, follow up and referral plans. Demonstrated understanding of instructions, follow-up care. 12:25 Patient left the ED. kr3 Signatures: Leonel Stephens PA PA jmm Williams, Irene, RN RN Mily Evans am2 Supriya Pearce, RN RN kr3 Corrections: (The following items were deleted from the chart) 09:57 09:56 BP 138 / 86; Pulse 71bpm; Resp 16bpm; Pulse Ox 96% RA; iw iw
--- NOTE | 2022-12-04 12:03 | EDPHYS ---
Physician Documentation [facility] Name: Marvin Ricketts Age: 77 yrs Sex: Male : 1945 Arrival Date: 12/04/2022 Time: 09:47 Bed DIS6 Private MD: ED Physician Minor Yeboah HPI: 12/04 10:08 This 77 yrs old Male presents to ER via Ambulatory with complaints of Sore jmm Throat. 10:08 The patient presents with sore throat. Onset: The symptoms/episode began/occurred jmm gradually, 1 day(s) ago. Modifying factors: The symptoms are alleviated by nothing, the symptoms are aggravated by nothing. Associated signs and symptoms: Pertinent negatives cough, fever, shortness of breath. It is unknown whether or not the patient has had similar symptoms in the past. Historical: - Allergies: 09:55 No Known Allergies; iw - Home Meds: 09:55 aspirin 81 mg Oral TbEC 1 tab once daily [Active]; clopidogrel 75 mg Oral tab 1 tab iw once daily [Active]; losartan 50 mg Oral tab 1 tab once daily [Active]; metoprolol tartrate 25 mg Oral tab 1 tab 2 times per day [Active]; simvastatin 20 mg Oral tab 1 tab once daily [Active]; - PMHx: 09:55 Diabetes - IDDM; Hyperlipidemia; Hypertension; Myocardial infarction; iw - Immunization history:: Client reports receiving the 2nd dose of the Covid vaccine. - Social history:: Smoking status: . ROS: 10:08 Constitutional: Positive for body aches. jmm 10:08 ENT: Positive for sore throat. 10:08 All other systems are negative. Exam: 10:08 Constitutional: This is a well developed, well nourished patient who is awake, alert, jmm and in no acute distress. Head/Face: atraumatic. Eyes: EOMI, no conjunctival erythema appreciated 10:08 Neck: Trachea midline, Supple Chest/axilla: Normal chest wall appearance and motion. Cardiovascular: Regular rate and rhythm. No edema appreciated Respiratory: Normal respirations, no respiratory distress appreciated Abdomen/GI: Non distended Back: Normal ROM Skin: General appearance color normal MS/ Extremity: Moves all extremities, no obvious deformities appreciated, no edema noted to the lower extremities Neuro: Awake and alert Psych: Behavior is normal, Mood is normal, Patient is cooperative and pleasant 10:08 ENT: Mild posterior erythema, no uvular shift, no peritonsillar mass appreciated. Vital Signs: 09:56 BP 138 / 86; Pulse 71; Resp 16; Temp 99.1(O); Pulse Ox 96% on R/A; iw 12:20 BP 139 / 67; Pulse 68; Resp 18; Pulse Ox 99% on R/A; kr3 MDM: 10:08 Patient medically screened. [facility] 12:01 Data reviewed: vital signs, nurses notes. Counseling: I had a detailed discussion with [facility] the patient and/or guardian regarding: the historical points, exam findings, and any diagnostic results supporting the discharge/admit diagnosis, lab results, the need for outpatient follow up, to return to the emergency department if symptoms worsen or persist or if there are any questions or concerns that arise at home. 17:35 I considered the following discharge prescriptions or medication management in the [facility] emergency department Antibiotics: At this time antibiotics are not recommended. Care significantly affected by the following chronic conditions: Diabetes, Hypertension. 12/04 10:09 Order name: COVID-19/FLU A+B; Complete Time: 11:45 [facility] 12/04 10:09 Order name: Strep; Complete Time: 11:17 [facility] 12/04 11:22 Order name: Throat Culture EDMS Administered Medications: No medications were administered Disposition: 16:55 Co-signature as Attending Physician, Minor Yeboah DO I reviewed the patient's care ms3 provided by the Advanced Practice Provider and agree with the diagnosis and treatment plan. Disposition Summary: 12/04/22 12:02 Discharge Ordered Location: Home [facility] Condition: Stable [facility] Diagnosis - Acute pharyngitis, unspecified [facility] Followup: [facility] - With: Private Physician - When: 2 - 3 days - Reason: Recheck today's complaints, Continuance of care, Re-evaluation by your physician Discharge Instructions: - Discharge Summary Sheet [facility] - Pharyngitis [facility] Forms: - Medication Reconciliation Form [facility] - Thank You Letter [facility] - Antibiotic Education [facility] - Prescription Opioid Use [facility] Signatures: Dispatcher [employer] EDMS Leonel Stephens PA PA jmm Williams, Irene, RN RN iw Sims, Marcus, DO DO ms3
[2022-12-04 12:46] VITALS: TEMP 99.1
[2022-12-04 12:48] VITALS: BP 139/67; O2SAT 99
== END 2022-12-04 12:25 | disposition home or self-care (01) ==
LOC: ER 09:46
DX: J02.9 Acute pharyngitis, unspecified (principal); Z20.822 Contact with and (suspected) exposure to COVID-19; E11.9 Type 2 diabetes mellitus without complications; I10 Essential (primary) hypertension; I25.2 Old myocardial infarction; Z79.82 Long term (current) use of aspirin
CPT/HCPCS: 87070; 87081; 0240U; 99283

== ENCOUNTER 2022-12-08 08:25 | Emergency (ER) | payer OTHER ==
--- NOTE | 2022-12-08 09:01 | RAD REPORT ---
EXAM DESCRIPTION: RAD - Chest Pa And Lat (2 Views) - 12/08/2022 8:55 am CLINICAL HISTORY: COUGH COMPARISON: Portable chest 03/29/2021, lateral chest 02/09/2019 TECHNIQUE: Frontal and lateral views of the chest were obtained. FINDINGS: The lungs are clear. Interstitial pattern matches comparison. Sternotomy wires in place. Cardiac valve surgical changes noted. Heart size is normal and central vasculature is within normal l imits. Left-side small pericardial fat pad seen. No pleural effusion or pneumothorax seen. No acute bony finding noted. No aortic abnormality. IMPRESSION: No acute cardiopulmonary process. No significant change from comparison study.
[2022-12-08 09:41] LABS: SARS-COV-2 RT PCR POSITIVE (NEGATIVE)
--- NOTE | 2022-12-08 10:26 | ER ---
Nurse's Notes [facility] Name: Marvin Ricketts Age: 77 yrs Sex: Male : 1945 Arrival Date: 12/08/2022 Time: 08:28 Bed IW1 Private MD: Diagnosis: SARS-associated coronavirus as the cause of diseases classified elsewhere;Cough;Myalgia Presentation: 12/08 08:34 Chief complaint: Patient states: Body aches, congestion and runny nose that began 1 ss week ago. Coronavirus screen: Client denies travel out of the [place] in the last 14 days. Ebola Screen: Patient denies exposure to infectious person. Patient denies travel to an Ebola-affected area in the 21 days before illness onset. Initial Sepsis Screen: Does the patient meet any 2 criteria? No. Patient's initial sepsis screen is negative. Does the patient have a suspected source of infection? No. Patient's initial sepsis screen is negative. Risk Assessment: Do you want to hurt yourself or someone else? Patient reports no desire to harm self or others. Onset of symptoms was December 01, 2022. 08:34 Method Of Arrival: Ambulatory ss 08:34 Acuity: EUGENIO 3 ss Historical: - Allergies: 08:38 No Known Allergies; ss - Home Meds: 08:38 aspirin 81 mg Oral TbEC 1 tab once daily [Active]; clopidogrel 75 mg Oral tab 1 tab ss once daily [Active]; losartan 50 mg Oral tab 1 tab once daily [Active]; metoprolol tartrate 25 mg Oral tab 1 tab 2 times per day [Active]; simvastatin 20 mg Oral tab 1 tab once daily [Active]; - PMHx: 08:38 Diabetes - IDDM; Hyperlipidemia; Hypertension; Myocardial infarction; ss - PSHx: 08:38 None; ss - Immunization history:: Client reports receiving the 2nd dose of the Covid vaccine. - Social history:: Smoking status: Patient denies any tobacco usage or history of. Screenin:32 [facility] ED Fall Risk Assessment (Adult) History of falling in the last 3 months, ss including since admission No falls in past 3 months (0 pts). Abuse screen: Denies threats or abuse. Denies injuries from another. Nutritional screening: No deficits noted. Tuberculosis screening: Never had TB. Assessment: 10:32 Reassessment: Patient appears in no apparent distress at this time. Neuro: Level of ss Consciousness is awake, alert. Respiratory: Airway is patent Respiratory effort is even, unlabored, Respiratory pattern is regular, symmetrical. Vital Signs: 08:34 BP 140 / 78; Pulse 90; Resp 18; Temp 98.2(TE); Pulse Ox 96% on R/A; Weight 72.57 kg; ss Height 5 ft. 3 in. (160.02 cm); Pain 0/10; 08:34 Body Mass Index 28.34 (72.57 kg, 160.02 cm) ss ED Course: 08:28 Patient arrived in ED. rg4 08:30 Minor Yeboah DO is Attending Physician. ms3 08:38 Triage completed. ss 08:38 Arm band placed on right wrist. ss 08:57 Chest Pa And Lat (2 Views) XRAY In Process Unspecified. EDMS 10:24 Daljit Langston DO is Referral Physician. ms3 10:32 Ivana Almendarez RN is Primary Nurse. ss 10:32 Patient has correct armband on for positive identification. ss 10:32 No provider procedures requiring assistance completed. Patient did not have IV access ss during this emergency room visit. Administered Medications: No medications were administered Medication: 10:32 VIS not applicable for this client. ss Outcome: 10:24 Discharge ordered by MD. ms3 10:32 Discharged to home ambulatory. ss 10:32 Condition: good 10:32 Discharge instructions given to patient, Instructed on discharge instructions, follow up and referral plans. medication usage, Demonstrated understanding of instructions, follow-up care, medications, Prescriptions given X 2. 10:35 Patient left the ED. ss Signatures: Dispatcher [employer] EDMI Ivana Almendarez RN RN Annette Vazquez rg4 Minor Yeboah DO DO ms3 Corrections: (The following items were deleted from the chart) 08:38 08:32 Chief complaint: ss ss
--- NOTE | 2022-12-08 10:27 | EDPHYS ---
Physician Documentation [facility] Name: Marvin Ricketts Age: 77 yrs Sex: Male : 1945 Arrival Date: 12/08/2022 Time: 08:28 Bed IW1 Private MD: ED Physician Minor Yeboah HPI: 12/08 08:44 This 77 yrs old Male presents to ER via Ambulatory with complaints of ms3 Congestion. 08:44 77-year-old male with past medical history of diabetes, hyperlipidemia, hypertension, ms3 myocardial infarction presents for nasal congestion, cough, throat pain that is been ongoing for 1 week. Patient denies fevers, chills, nausea, vomiting. Patient denies alleviating or inciting factors.. Historical: - Allergies: 08:38 No Known Allergies; ss - Home Meds: 08:38 aspirin 81 mg Oral TbEC 1 tab once daily [Active]; clopidogrel 75 mg Oral tab 1 tab ss once daily [Active]; losartan 50 mg Oral tab 1 tab once daily [Active]; metoprolol tartrate 25 mg Oral tab 1 tab 2 times per day [Active]; simvastatin 20 mg Oral tab 1 tab once daily [Active]; - PMHx: 08:38 Diabetes - IDDM; Hyperlipidemia; Hypertension; Myocardial infarction; ss - PSHx: 08:38 None; ss - Immunization history:: Client reports receiving the 2nd dose of the Covid vaccine. - Social history:: Smoking status: Patient denies any tobacco usage or history of. ROS: 08:44 Constitutional: Negative for fever, and chills. Neck: Negative for injury, pain, and ms3 swelling, Cardiovascular: Negative for chest pain, and palpitations. 08:44 Abdomen/GI: Negative for abdominal pain, nausea, vomiting, diarrhea, and constipation, MS/Extremity: Negative for injury and deformity. 08:44 Respiratory: Positive for cough. 08:44 All other systems are negative. Exam: 08:44 Constitutional: This is a well developed, well nourished patient who is awake, alert, ms3 and in no acute distress. Head/Face: Normocephalic, atraumatic. Neck: Trachea midline, no cervical lymphadenopathy. Supple, full range of motion without nuchal rigidity, or vertebral point tenderness. No Meningismus. Chest/axilla: Normal chest wall appearance and motion. Nontender with no deformity. Cardiovascular: Regular rate and rhythm with a normal S1 and S2. No gallops, murmurs, or rubs. Normal PMI, no JVD. No pulse deficits. Respiratory: Lungs have equal breath sounds bilaterally, clear to auscultation and percussion. No rales, rhonchi or wheezes noted. No increased work of breathing, no retractions or nasal flaring. Abdomen/GI: Soft, non-tender, with normal bowel sounds. No distension or tympany. No guarding or rebound. No evidence of tenderness throughout. Skin: Warm, dry with normal turgor. Normal color with no rashes, no lesions, and no evidence of cellulitis. MS/ Extremity: Pulses equal, no cyanosis. Neurovascular intact. Full, normal range of motion. Vital Signs: 08:34 BP 140 / 78; Pulse 90; Resp 18; Temp 98.2(TE); Pulse Ox 96% on R/A; Weight 72.57 kg; ss Height 5 ft. 3 in. (160.02 cm); Pain 0/10; 08:34 Body Mass Index 28.34 (72.57 kg, 160.02 cm) ss MDM: 08:44 Differential diagnosis: bronchitis, flu, URI, Pneumonia. ms3 08:46 Patient medically screened. ms3 19:22 Antibiotic administration: Not indicated. Data reviewed: vital signs, nurses notes, lab ms3 test result(s), radiologic studies, and as a result, I will discharge patient. Consideration of Admission/Observation Escalation of care including admission/observation considered. No emergent medical condition necessitating admission found at this time. Historians other than the Patient: Spouse/Significant Other: Patient's . Care significantly affected by the following chronic conditions: Diabetes, Hypertension, Hyperlipidemia, myocardial infarction. Counseling: I had a detailed discussion with the patient and/or guardian regarding: the historical points, exam findings, and any diagnostic results supporting the discharge/admit diagnosis, lab results, radiology results, the need for outpatient follow up, to return to the emergency department if symptoms worsen or persist or if there are any questions or concerns that arise at home. ED course: Discussed labs, chest x-ray with patient and his . Patient to follow-up with his primary care physician in 2 to 3 days. Patient understands and agrees with plan. All questions were answered. Return precautions discussed include worsening symptoms, or any other concerns. On reevaluation patient is alert and oriented x4, no apparent distress, no apparent distress, ambulatory in emergency department, speaking full sentences. 12/08 08:44 Order name: COVID-19/FLU A+B; Complete Time: 10:26 ms3 12/08 08:44 Order name: Chest Pa And Lat (2 Views) XRAY; Complete Time: 09:26 ms3 Administered Medications: No medications were administered Disposition Summary: 12/08/22 10:24 Discharge Ordered Location: Home ms3 Condition: Stable ms3 Diagnosis - SARS-associated coronavirus as the cause of diseases classified elsewhere ms3 - Cough ms3 - Myalgia ms3 Followup: ms3 - With: - When: 2 - 3 days - Reason: Recheck today's complaints Discharge Instructions: - Discharge Summary Sheet ms3 - Cough, Adult ms3 - COVID-19 ms3 - 10 Things You Can Do to Manage Your COVID-19 Symptoms at Home - [facility] [facility] [place]3 Forms: - Medication Reconciliation Form ms3 - Thank You Letter ms3 - Antibiotic Education ms3 - Prescription Opioid Use ms3 Prescriptions: - molnupiravir 200 mg Oral capsule - take 4 capsule by ORAL route every 12 hours for 5 days; 40 capsule; Refills: 0, ms3 Product Selection Permitted - benzonatate 200 mg Oral Capsule - take 1 capsule by ORAL route 3 times per day as needed; 15 capsule; Refills: 0, ms3 Product Selection Permitted Signatures: Dispatcher [employer] Ivana Bray RN RN ss Sims, Marcus, DO DO ms3
[2022-12-08 11:14] VITALS: BP 140/78; TEMP 98.2; O2SAT 96
== END 2022-12-08 10:35 | disposition home or self-care (01) ==
LOC: ER 08:25
DX: U07.1 COVID-19 (principal); M79.10 Myalgia, unspecified site; E11.9 Type 2 diabetes mellitus without complications; I10 Essential (primary) hypertension; I25.2 Old myocardial infarction; Z79.82 Long term (current) use of aspirin
CPT/HCPCS: 0240U; 71046; 99283

== ENCOUNTER → 2023-11-22 | Emergency (ER) | payer OTHER ==
--- NOTE | 2023-11-22 12:59 | ER ---
Nurse's Notes [facility] Name: Marvin Ricketts Age: 78 yrs Sex: Male : 1945 Arrival Date: 11/22/2023 Time: 10:34 Bed IW1 Private MD: Jose Mckeon Diagnosis: Presentation: 11/22 11:32 Chief complaint: Patient states: FALL LAST WEDNESDAY WITH LEFT SIDE PAIN, COUGH AND SORE iw THROAT. Coronavirus screen: At this time, the client does not indicate any symptoms associated with coronavirus-19. Ebola Screen: No symptoms or risks identified at this time. Initial Sepsis Screen: Does the patient meet any 2 criteria? No. Patient's initial sepsis screen is negative. Does the patient have a suspected source of infection? No. Patient's initial sepsis screen is negative. Risk Assessment: Do you want to hurt yourself or someone else? Patient reports no desire to harm self or others. Onset of symptoms is unknown. 11:32 Method Of Arrival: Wheelchair iw 11:32 Acuity: EUGENIO 3 iw Triage Assessment: 11:34 General: Appears in no apparent distress. Behavior is cooperative, appropriate for age, iw anxious. Pain: Complains of pain in back. Historical: - PMHx: 11:34 Diabetes - IDDM; Hyperlipidemia; Hypertension; Myocardial infarction; iw - Immunization history:: Adult Immunizations up to date. - Social history:: Smoking status: Patient denies any tobacco usage or history of. Assessment: 12:49 General: Called from lobby. No response.. kb3 12:56 General: Called from lobby. Unable to locate. kb3 Vital Signs: 11:32 BP 119 / 64; Pulse 96; Resp 16; Temp 99.7; Pulse Ox 97% ; Weight 72.57 kg; Height 5 ft. iw 3 in. ; 11:32 Body Mass Index 28.34 (72.57 kg, 160.02 cm) iw ED Course: 10:36 Patient arrived in ED. rg4 10:37 Jose Mckeon MD is Private Physician. rg4 11:33 Triage completed. iw 11:34 Arm band placed on. iw 12:42 Rasheeda Youssef MD is Attending Physician. gb1 12:50 Minor Yeboah DO is Attending Physician. ms3 Administered Medications: No medications were administered Outcome: 12:57 Eloped from waiting room, before seeing physician kb3 12:57 unknown 12:59 Patient left the ED. kb3 Signatures: Shirley Poe, RN RN Annette Nelson rg4 Minor Yeboah, DO ms3 Margaret Man, RN RN kb3 Rasheeda Youssef MD MD gb1 Corrections: (The following items were deleted from the chart) 11:35 11:32 Pulse 96bpm; Resp 16bpm; Pulse Ox 97%; Temp 99.7F; mechelle min
[2023-11-22 13:13] VITALS: BP 119/64; TEMP 99.7; O2SAT 97
== END ==
LOC: ER 10:34
DX: Z53.21 Procedure and treatment not carried out due to patient leaving prior to being seen by health care provider (principal)
CPT/HCPCS: 99281

== ENCOUNTER 2024-07-05 13:12 | Emergency (ER) | payer OTHER ==
[2024-07-05 13:51] LABS: Absolute Eosinophils 0.1 K/uL (0-0.5); Absolute Lymphocytes (CBC) 1.6 K/uL (0.7-4.9); Absolute Monocytes 0.5 K/uL (0.1-1.3); Absolute Neutrophil 6.4 K/uL (1.8-8.0); Basophils % 0.6 % (0-1.3); Eosinophils % 1.6 % (0-4.4); Hematocrit 42.3 % (39.6-49.0); Hemoglobin 14.3 g/dL (13.6-17.9); MCH 31.8 pg (27.0-35.0); MCHC 33.7 g/dL (32.0-36.0); MCV 94.3 fL (80-100); MPV 7.6 fL (7.6-11.3); Monocytes % 5.4 % (3.3-12.3); Neutrophils % 74.4 % (41.7-73.7); Nucleated Red Blood Cells % 0.1 % (0-0); Platelets 184 thou/uL (152-406); RBC Red Blood Cell Count 4.48 M/uL (4.33-5.43); Red Cell Distribution Width 12.7 % (12.1-15.2)
[2024-07-05 14:03] LABS: Sqamous Epithelial <5 /HPF (None Seen); Urine Bacteria <20 /HPF (<20); Urine Bilirubin NEGATIVE (Negative); Urine Blood Negative (Negative); Urine Clarity Clear (Clear); Urine Color Colorless (Yellow); Urine Culture Reflex Order NOT NEEDED; Urine Glucose 4+ (Over) (Negative); Urine Ketones NEGATIVE (Negative); Urine Microscopic Reflex YN ORDER UMIC; Urine Nitrite NEGATIVE (Negative); Urine Protein TRACE (Negative); Urine Urobilinogen Normal (Normal); Urine WBC <5 /HPF (<5)
[2024-07-05 14:06] LABS: Albumin 3.8 g/dL (3.4-5.0); Albumin/Globulin Ratio 0.8 (1.1-1.8); Anion Gap 12.2 mEq/L (5.0-15.0); Bilirubin Total 1.1 mg/dL (0.2-1.0); Globulin 4.9 g/dL (2.3-3.5); Potassium 4.2 mEq/L (3.5-5.1); Protein, Total 8.7 g/dL (6.4-8.2)
--- NOTE | 2024-07-05 14:45 | RAD REPORT ---
EXAM DESCRIPTION: CTAbdomen Pelvis W Contrast - 07/05/2024 2:34 pm CLINICAL HISTORY: Abdominal pain. ABD PAIN COMPARISON: <Comparisons> TECHNIQUE: Biphasic CT imaging of the abdomen and pelvis was performed with 100 ml non-ionic IV cont rast. All CT scans are performed using dose optimization technique as appropriate and may include automated exposure control or mA/KV adjustment according to patient size. FINDINGS: The lung bases are clear.Small hiatal hernia. The liver demonstrates fatty infiltration. Cholecystectomy clips. Spleen, pancreas, adrenal glands an d kidneys are within normal limits. No bowel obstruction, free air, free fluid or abscess. Significant stool is present in the rectosigmo id colon. The appendix is normal. No evidence of significant lymphadenopathy. Mild to moderate lumbosacral degenerative changes. IMPRESSION: No acute intra-abdominal or pelvic finding. Significant rectosigmoid stool retention.
[2024-07-05] MEDS ORDERED: KETOROLAC 30 MG/ML INJ ONE (16:03)
[2024-07-05] MEDS ORDERED: INSULIN REGULAR (HUMAN) 100 UNIT/ML ONE (16:03)
[2024-07-05] MEDS ORDERED: ONDANSETRON 4 MG/2 ML VIAL ONE (16:03)
[2024-07-05] MEDS ORDERED: NA CHLORIDE 0.9% 1,000 ML ONE (16:04)
[2024-07-05] MEDS ORDERED: FLEET ENEMA ADULT PR ONE (16:04)
--- NOTE | 2024-07-05 17:17 | ER ---
Nurse's Notes [facility] Name: Marvin Ricketts Age: 79 yrs Sex: Male : 1945 Arrival Date: 07/05/2024 Time: 13:12 Bed 2 Private MD: Diagnosis: Constipation;Hyperglycemia, unspecified Presentation: 07/05 13:26 Chief complaint: Patient states: Generalized abdominal pian x 3 days, denies N/V/D or ph fever. Coronavirus screen: Vaccine status: Patient reports receiving the 2nd dose of the covid vaccine. Ebola Screen: No symptoms or risks identified at this time. Initial Sepsis Screen: Does the patient meet any 2 criteria? No. Patient's initial sepsis screen is negative. Does the patient have a suspected source of infection? No. Patient's initial sepsis screen is negative. Risk Assessment: Do you want to hurt yourself or someone else? Patient reports no desire to harm self or others. Onset of symptoms was July 05, 2024. 13:26 Method Of Arrival: Ambulatory ph 13:26 Acuity: EUGENIO 3 ph Triage Assessment: 13:29 General: Appears in no apparent distress. Behavior is calm, cooperative. Pain: ph Complains of pain in abdomen. GI: Patient currently denies diarrhea, nausea, vomiting. Historical: - Allergies: 13:28 No Known Allergies; ph - PMHx: 13:28 Diabetes - IDDM; Hyperlipidemia; Hypertension; Myocardial infarction; ph - Immunization history:: Adult Immunizations unknown. - Infectious Disease History:: Denies. - Social history:: Smoking status: Patient denies any tobacco usage or history of. Screenin:14 [facility] ED Fall Risk Assessment (Adult) History of falling in the last 3 months, ld1 including since admission No falls in past 3 months (0 pts) Confusion or Disorientation No (0 pts) Intoxicated or Sedated No (0 pts) Impaired Gait No (0 pts) Mobility Assist Device Used No (0 pt) Altered Elimination No (0 pt) Score/Fall Risk Level 0 - 2 = Low Risk Oriented to surroundings, Maintained a safe environment, Educated pt \T\ family on fall prevention, incl call for assistance when getting out of bed, Assessed \T\ reinforced patient's understanding of fall precautions, Provided non-skid footwear, Hourly rounding (assess needs \T\ fall precautionary measures) done, Used ambulatory aids as needed (educated on \T\ assisted with), Used gait belt as appropriate. Abuse screen: Denies threats or abuse. Denies injuries from another. Nutritional screening: No deficits noted. Tuberculosis screening: No symptoms or risk factors identified. Assessment: 16:14 General: Appears in no apparent distress. comfortable, Behavior is calm, cooperative, ld1 appropriate for age. Pain: Complains of pain in abdomen Pain does not radiate. Pain currently is 8 out of 10 on a pain scale. Quality of pain is described as throbbing. Neuro: Level of Consciousness is awake, alert, obeys commands, Oriented to person, place, time, situation, Appropriate for age. Cardiovascular: Capillary refill < 3 seconds Patient's skin is warm and dry. Respiratory: Airway is patent Respiratory effort is even, unlabored. GI: Abdomen is flat, non-distended, Bowel sounds present X 4 quads. Abd is soft Abdomen is tender to palpation Reports lower abdominal pain, upper abdominal pain, constipation. : No signs and/or symptoms were reported regarding the genitourinary system. EENT: No signs and/or symptoms were reported regarding the EENT system. Derm: No signs and/or symptoms reported regarding the dermatologic system. Musculoskeletal: No signs and/or symptoms reported regarding the musculoskeletal system. 16:30 Reassessment: Pt had bowel movement after fleet enema - reports feeling relief. Patient ld1 denies pain at this time. Patient states symptoms have improved. 18:32 Reassessment: No changes from previously documented assessment. Patient and/or family mb9 updated on plan of care and expected duration. Pain level reassessed. Patient is alert, oriented x 3, equal unlabored respirations, skin warm/dry/pink. Vital Signs: 13:26 BP 135 / 67; Pulse 88; Resp 18; Temp 98.6; Pulse Ox 95% on R/A; Weight 63.5 kg; Height ph 5 ft. 2 in. ; 18:32 BP 143 / 76; Pulse 73; Resp 18; Pulse Ox 100% on R/A; mb9 13:26 Body Mass Index 25.61 (63.50 kg, 157.48 cm) ph ED Course: 13:16 Patient arrived in ED. mg5 13:17 Kamini Manzano FNP-C [facility]. kb 13:17 Alcides Cruz MD is Attending Physician. kb 13:28 Triage completed. ph 13:29 Arm band placed on Patient placed in waiting room, Patient notified of wait time. ph 13:39 Initial lab(s) drawn, by me, sent to lab. Inserted saline lock: 20 gauge in left bc6 forearm, using aseptic technique. Blood collected. Flushed with 10 mL NS. 13:40 CBC with Diff Sent. bc6 13:40 CMP Sent. bc6 13:40 Lipase Sent. bc6 13:42 Urinalysis w/ reflexes Sent. bc6 14:36 CT Abd/Pelvis - IV Contrast Only In Process Unspecified. EDMS 15:59 Belen Yeboah, RN is Primary Nurse. ld1 16:14 Patient has correct armband on for positive identification. Placed in gown. Bed in low ld1 position. Call light in reach. Side rails up X2. Pulse ox on. NIBP on. Door closed. Noise minimized. Warm blanket given. 18:33 No provider procedures requiring assistance completed. IV discontinued, intact, ld1 bleeding controlled, No redness/swelling at site. 18:34 Provided Education on: pain management . ld1 Administered Medications: 15:39 CANCELLED (Physician Discretion): morphineor iv 4 mg IVP once over 4 mins kb 15:59 CANCELLED (Physician Discretion): magnesium citrateliquid 300 ml PO once kb 16:15 Drug: NS 0.9% IV 1000 ml IV at 1 bolus Per protocol; 1000 mL bolus Route: IV; Rate: 1 ar6 bolus; Site: left antecubital; 17:00 Follow up: Response: No adverse reaction; IV Status: Completed infusion; IV Intake: ar6 1000ml 16:15 Drug: Ondansetron IVP 4 mg IVP once; over 2 minutes Route: IVP; Site: left antecubital; ar6 16:38 Follow up: Response: No adverse reaction ar6 17:15 Follow up: Response: No adverse reaction ar6 16:15 Drug: Insulin Regular Human IVP 10 units IVP once {Co-Signature: ld1 (Belen Yeboah6 RN).} Route: IVP; Site: Other; 16:37 Follow up: Response: No adverse reaction ar6 17:30 Follow up: Response: No adverse reaction ar6 16:20 Drug: Ketorolac IVP 15 mg IVP once Route: IVP; Site: left antecubital; ar6 16:37 Follow up: Response: No adverse reaction ar6 18:05 Follow up: Response: No adverse reaction ar6 18:05 Follow up: Response: No adverse reaction ar6 16:20 Drug: Fleet Enema NC 133 ml NC once; may repeat once Route: NC; ar6 16:37 Follow up: Response: No adverse reaction ar6 18:05 Follow up: Response: No adverse reaction ar6 Medication: 16:14 VIS not applicable for this client. ld1 Intake: 17:00 IV: 1000ml; Total: 1000ml. ar6 Outcome: 17:17 Discharge ordered by MD. tran 18:33 Discharged to home ambulatory, with family, ld1 18:33 Condition: stable 18:33 Discharge instructions given to patient, Instructed on discharge instructions, follow up and referral plans. Demonstrated understanding of instructions, follow-up care, 18:50 Patient left the ED. ld1 Signatures: Dispatcher [employer] EDMS Kamini Manzano, CHELSEY-C FABRICATION MANAGER-CkJoleen Garcia RN RN Belen Yeboah RN RN ld1 Elizabeth Albrecht RN RN mb9 Nicolette Galindo6 Chayito Gruber mg5 Mamie Teague RN RN ar6 Belen Yeboah RN ld1 Corrections: (The following items were deleted from the chart) 18:37 18:35 Reassessment: ld1 ld1
--- NOTE | 2024-07-05 17:17 | EDPHYS ---
Physician Documentation [facility] Name: Marvin Ricketts Age: 79 yrs Sex: Male : 1945 Arrival Date: 07/05/2024 Time: 13:12 Bed 2 Private MD: ED Physician Alcides Cruz HPI: 07/05 18:59 This 79 yrs old Male presents to ER via Ambulatory with complaints of kb Abdominal Pain. 18:59 Pt is a 79 year old male who presents for diffuse abd pain that started 3 days ago. kb Denies fever, n/v/d. Denies any alleviating or aggravating factors. Historical: - Allergies: 13:28 No Known Allergies; ph - PMHx: 13:28 Diabetes - IDDM; Hyperlipidemia; Hypertension; Myocardial infarction; ph - Immunization history:: Adult Immunizations unknown. - Infectious Disease History:: Denies. - Social history:: Smoking status: Patient denies any tobacco usage or history of. ROS: 17:16 Constitutional: As per HPI kb Exam: 17:16 Constitutional: This is a well developed, well nourished patient who is awake, alert, kb and in no acute distress. Head/Face: Normocephalic, atraumatic. ENT: Moist Mucous membranes Cardiovascular: Regular rate Respiratory: Respirations even and unlabored. No increased work of breathing. Talking in full sentences Skin: Warm, dry with normal turgor. Normal color. MS/ Extremity: Pulses equal, no cyanosis. Neurovascular intact. Full, normal range of motion. Neuro: Awake and alert, GCS 15, oriented to person, place, time, and situation. Moves all extremities. Normal gait. 17:16 Abdomen/GI: Inspection: abdomen appears normal, Bowel sounds: normal, Palpation: soft, in all quadrants, mild abdominal tenderness, in all quadrants, Vital Signs: 13:26 BP 135 / 67; Pulse 88; Resp 18; Temp 98.6; Pulse Ox 95% on R/A; Weight 63.5 kg; Height ph 5 ft. 2 in. ; 18:32 BP 143 / 76; Pulse 73; Resp 18; Pulse Ox 100% on R/A; mb9 13:26 Body Mass Index 25.61 (63.50 kg, 157.48 cm) ph MDM: 13:17 Patient medically screened. kb 19:00 Differential diagnosis: bowel obstruction, diverticulitis, gastroesophageal reflux kb disease, non-specific abd pain, constipation. Data reviewed: vital signs, nurses notes. Historians other than the Patient: Daughter/Son: daughter. Counseling: I had a detailed discussion with the patient and/or guardian regarding the historical points, exam findings, and any diagnostic results supporting the discharge/admit diagnosis, lab results, radiology results, the need for outpatient follow up, a family practitioner, to return to the emergency department if symptoms worsen or persist or if there are any questions or concerns that arise at home. ED course: Pt states he has not been using his insulin pen because he thinks it makes his sugar go up. Has been waiting for appt with his pcp to get different insulin. . 07/05 13:27 Order name: CBC with Diff; Complete Time: 13:57 kb 07/05 13:27 Order name: CMP; Complete Time: 14:26 kb 07/05 13:27 Order name: Lipase; Complete Time: 14:26 kb 07/05 13:27 Order name: Urinalysis w/ reflexes; Complete Time: 14:09 kb 07/05 17:27 Order name: Glucose, Ancillary Testing; Complete Time: 17:30 EDMS 07/05 13:27 Order name: CT Abd/Pelvis - IV Contrast Only; Complete Time: 14:54 kb 07/05 13:27 Order name: IV Saline Lock; Complete Time: 13:39 kb 07/05 13:27 Order name: Labs collected and sent; Complete Time: 13:40 kb Administered Medications: 15:39 CANCELLED (Physician Discretion): morphineor iv 4 mg IVP once over 4 mins kb 15:59 CANCELLED (Physician Discretion): magnesium citrateliquid 300 ml PO once kb 16:15 Drug: NS 0.9% IV 1000 ml IV at 1 bolus Per protocol; 1000 mL bolus Route: IV; Rate: 1 ar6 bolus; Site: left antecubital; 17:00 Follow up: Response: No adverse reaction; IV Status: Completed infusion; IV Intake: ar6 1000ml 16:15 Drug: Ondansetron IVP 4 mg IVP once; over 2 minutes Route: IVP; Site: left antecubital; ar6 16:38 Follow up: Response: No adverse reaction ar6 17:15 Follow up: Response: No adverse reaction ar6 16:15 Drug: Insulin Regular Human IVP 10 units IVP once {Co-Signature: ld1 (Belen Yeboah ar6 RN).} Route: IVP; Site: Other; 16:37 Follow up: Response: No adverse reaction ar6 17:30 Follow up: Response: No adverse reaction ar6 16:20 Drug: Ketorolac IVP 15 mg IVP once Route: IVP; Site: left antecubital; ar6 16:37 Follow up: Response: No adverse reaction ar6 18:05 Follow up: Response: No adverse reaction ar6 18:05 Follow up: Response: No adverse reaction ar6 16:20 Drug: Fleet Enema NJ 133 ml NJ once; may repeat once Route: NJ; ar6 16:37 Follow up: Response: No adverse reaction ar6 18:05 Follow up: Response: No adverse reaction ar6 Disposition Summary: 07/05/24 17:17 Discharge Ordered Notes: Location: Home kb Condition: Stable kb Diagnosis - Constipation kb - Hyperglycemia, unspecified kb Followup: kb - With: Private Physician - When: 2 - 3 days - Reason: Recheck today's complaints, Continuance of care, Re-evaluation by your physician Followup: kb - With: Emergency Department - When: As needed - Reason: Worsening of condition Discharge Instructions: - Discharge Summary Sheet kb - Constipation, Adult, Gkdt-he-Odmg kb - Hyperglycemia, Stje-gw-Podz kb Forms: - Medication Reconciliation Form kb - Antibiotic Education kb - Prescription Opioid Use kb - Patient Portal Instructions kb - Leadership Thank You Letter kb Signatures: Dispatcher [employer] EDKamini Byrne, COMMUNICATION INSTRUCTOR-C COMMUNICATION INSTRUCTOR-Joleen Steven, RN RN Mamie Teague, RN RN ar6 Belen Yeboah RN ld1 Corrections: (The following items were deleted from the chart) 13:28 13:28 CBC+H.LAB.BRZ ordered. EDMS EDMS 13:28 13:28 COMPREHENSIVE METABOLIC PANEL+C.LAB.BRZ ordered. EDMS EDMS 13:28 13:28 LIPASE+C.LAB.BRZ ordered. EDMS EDMS 13:28 13:28 Urinalysis+U.LAB.BRZ ordered. EDMS EDMS 13:28 13:28 Abdomen Pelvis W Con+CT.RAD.BRZ ordered. EDMS EDMS 15:39 13:27 morphine IVP or IV 4 mg IVP once over 4 mins ordered. kb kb 15:59 14:55 Magnesium Citrate PO Liquid 300 ml PO once ordered. kb kb
[2024-07-05 18:54] VITALS: TEMP 98.6
[2024-07-05 18:55] VITALS: BP 143/76; O2SAT 100
== END 2024-07-05 18:50 | disposition home or self-care (01) ==
LOC: ER 13:12
DX: K59.00 Constipation, unspecified (principal); E11.65 Type 2 diabetes mellitus with hyperglycemia; I10 Essential (primary) hypertension
CPT/HCPCS: 85025; 81001; 36415; 82947; 83690; 80053; 74177; Q9967; J2405; J7030

== ENCOUNTER 2024-11-13 21:21 | Emergency (ER) | payer OTHER ==
--- NOTE | 2024-11-13 22:37 | RAD REPORT ---
EXAM: Chest Single View HISTORY: COUGH COMPARISON: None. FINDINGS: LUNGS/PLEURA: The lungs are clear. No pleural effusions or pneumothorax. No pulmonary edema. MEDIASTINUM: The mediastinal silhouette is within normal limits. CARDIAC: The cardiac silhouette is within normal limits. UPPER ABDOMEN: No significant abnormality. BONES: Sternotomy. No acute abnormality. LINES/TUBES/OTHER: N/A IMPRESSION: No evidence of acute cardiopulmonary disease.
[2024-11-13] MEDS ORDERED: INSULIN REGULAR (HUMAN) 100 UNIT/ML ONE (23:18)
[2024-11-13] MEDS ORDERED: INSULIN GLARGINE 100 UNIT/ML SQ ONE (23:18)
[2024-11-13] MEDS ORDERED: NA CHLORIDE 0.9% 1,000 ML ONE (23:19)
[2024-11-14 00:18] LABS: Specific Gravity 1.026 (1.005-1.030); Urine Bilirubin NEGATIVE (Negative); Urine Blood Negative (Negative); Urine Clarity Clear (Clear); Urine Color Colorless (Yellow); Urine Glucose 4+ (Over) (Negative); Urine Ketones NEGATIVE (Negative); Urine Microscopic Reflex YN NO UMIC; Urine Nitrite NEGATIVE (Negative); Urine Protein NEGATIVE (Negative); Urine Urobilinogen Normal (Normal)
[2024-11-14 00:27] LABS: PT Prothrombin Time 10.7 SECONDS (9.4-12.5); Protime INR 0.95
[2024-11-14 00:29] LABS: Absolute Eosinophils 0.1 K/uL (0-0.5); Absolute Lymphocytes (CBC) 1.6 K/uL (0.7-4.9); Absolute Monocytes 0.5 K/uL (0.1-1.3); Absolute Neutrophil 4.2 K/uL (1.8-8.0); Basophils % 0.4 % (0-1.3); Eosinophils % 2.1 % (0-4.4); Hematocrit 38.9 % (39.6-49.0); Hemoglobin 13.2 g/dL (13.6-17.9); MCH 31.2 pg (27.0-35.0); MCHC 33.8 g/dL (32.0-36.0); MCV 92.4 fL (80-100); MPV 7.5 fL (7.6-11.3); Monocytes % 7.1 % (3.3-12.3); Neutrophils % 65.4 % (41.7-73.7); Nucleated Red Blood Cells % 0.1 % (0-0); Platelets 148 thou/uL (152-406); RBC Red Blood Cell Count 4.21 M/uL (4.33-5.43); Red Cell Distribution Width 13.4 % (12.1-15.2)
[2024-11-14 00:42] LABS: Albumin 2.9 g/dL (3.4-5.0); Albumin/Globulin Ratio 0.7 (1.1-1.8); Alkaline Phosphatase 126 U/L (45-117); Anion Gap 11.3 mEq/L (5.0-15.0); BUN Blood Urea Nitrogen 39 mg/dL (7-18); Bicarbonate 23 mEq/L (21-32); Bilirubin Direct 0.2 mg/dL (0-0.2); Bilirubin Indirect, Calculated 0.6 mg/dL (0.2-0.8); Bilirubin Total 0.8 mg/dL (0.2-1.0); Globulin 4.2 g/dL (2.3-3.5); Glomerular Filtration Rate 54 ml/min (=/>90); Glucose Level 252 mg/dL (74-106); Lipase 44 U/L (13-75); Magnesium 2.4 mg/dL (1.6-2.4); NT PRO-BNP 191 pg/mL (<450); Potassium 3.3 mEq/L (3.5-5.1); Protein, Total 7.1 g/dL (6.4-8.2); Sodium Level 140 mEq/L (136-145); Troponin High Sensitivity 8.9 pg/mL (<58.9)
[2024-11-14 00:51] LABS: ALT/SGPT < 14 U/L (16-61); AST/SGOT < 10 U/L (15-37)
[2024-11-14] MEDS ORDERED: POTASSIUM 25 MEQ EFFERV TAB ONE (01:42)
[2024-11-14 02:16] LABS: Anion Gap 10.6 mEq/L (5.0-15.0); Potassium 3.6 mEq/L (3.5-5.1); Troponin High Sensitivity 8.8 pg/mL (<58.9)
--- NOTE | 2024-11-14 02:20 | EDPHYS ---
Physician Documentation [facility] Name: Marvin Ricketts Age: 79 yrs Sex: Male : 1945 Arrival Date: 11/13/2024 Time: 21:21 Bed 4 Private MD: ED Physician Bang Lazar HPI: 11/13 23:12 This 79 yrs old Male presents to ER via Ambulatory with complaints of High zohreh Blood Pressure, High Blood Sugar. 23:12 The patient has elevated blood pressure and discovered this at home, with a home zohreh device. Onset: The symptoms/episode began/occurred just prior to arrival. Modifying factors: The symptoms are aggravated by activity, The symptoms are alleviated by remaining still. Associated signs and symptoms: The patient has no apparent associated signs or symptoms. Severity of symptoms: At its worst the blood pressure was moderate, in the emergency department the blood pressure is improved, mildly, moderately. The patient has experienced similar episodes in the past, multiple times. Historical: - Allergies: 21:50 No Known Allergies; cm10 - PMHx: 21:50 Diabetes - IDDM; Hyperlipidemia; Hypertension; Myocardial infarction; cm10 - Immunization history:: Adult Immunizations up to date. - Infectious Disease History:: Denies. - Social history:: Smoking status: Patient denies any tobacco usage or history of. - Family history:: not pertinent. ROS: 23:12 Constitutional: Negative for fever, chills, and weight loss, Eyes: Negative for injury, zohreh pain, redness, and discharge, ENT: Negative for injury, pain, and discharge, Neck: Negative for injury, pain, and swelling, Cardiovascular: Negative for chest pain, palpitations, and edema, Respiratory: Negative for shortness of breath, cough, wheezing, and pleuritic chest pain, Abdomen/GI: Negative for abdominal pain, nausea, vomiting, diarrhea, and constipation, Back: Negative for injury and pain, : Negative for injury, bleeding, discharge, and swelling, MS/Extremity: Negative for injury and deformity, Skin: Negative for injury, rash, and discoloration, Psych: Negative for depression, anxiety, suicide ideation, homicidal ideation, and hallucinations, Allergy/Immunology: Negative for hives, rash, and allergies, Endocrine: Negative for neck swelling, polydipsia, polyuria, polyphagia, and marked weight changes, Hematologic/Lymphatic: Negative for swollen nodes, abnormal bleeding, and unusual bruising, 23:12 Neuro: Positive for headache, Exam: 23:12 Constitutional: This is a well developed, well nourished patient who is awake, alert, zohreh and in no acute distress. Head/Face: Normocephalic, atraumatic. Eyes: Pupils equal round and reactive to light, extra-ocular motions intact. Lids and lashes normal. Conjunctiva and sclera are non-icteric and not injected. Cornea within normal limits. Periorbital areas with no swelling, redness, or edema. ENT: Nares patent. No nasal discharge, no septal abnormalities noted. Tympanic membranes are normal and external auditory canals are clear. Oropharynx with no redness, swelling, or masses, exudates, or evidence of obstruction, uvula midline. Mucous membranes moist. Neck: Trachea midline, no thyromegaly or masses palpated, and no cervical lymphadenopathy. Supple, full range of motion without nuchal rigidity, or vertebral point tenderness. No Meningismus. Chest/axilla: Normal chest wall appearance and motion. Nontender with no deformity. No lesions are appreciated. Cardiovascular: Regular rate and rhythm with a normal S1 and S2. No gallops, murmurs, or rubs. Normal PMI, no JVD. No pulse deficits. Respiratory: Lungs have equal breath sounds bilaterally, clear to auscultation and percussion. No rales, rhonchi or wheezes noted. No increased work of breathing, no retractions or nasal flaring. Abdomen/GI: Soft, non-tender, with normal bowel sounds. No distension or tympany. No guarding or rebound. No evidence of tenderness throughout. Back: No spinal tenderness. No costovertebral tenderness. Full range of motion. Male : Normal genitalia with no discharge or lesions. Skin: Warm, dry with normal turgor. Normal color with no rashes, no lesions, and no evidence of cellulitis. MS/ Extremity: Pulses equal, no cyanosis. Neurovascular intact. Full, normal range of motion., bilateral aka Neuro: Awake and alert, GCS 15, oriented to person, place, time, and situation. Cranial nerves II-XII grossly intact. Motor strength 5/5 in all extremities. Sensory grossly intact. Cerebellar exam normal. Normal gait. Psych: Awake, alert, with orientation to person, place and time. Behavior, mood, and affect are within normal limits. 11/14 00:01 ECG was reviewed by the Attending Physician. [facility] Vital Signs: 11/13 21:49 BP 146 / 78; Pulse 70; Resp 16; Temp 97.5(TE); Pulse Ox 98% on R/A; Weight 70.31 kg; cm10 Height 5 ft. 3 in. ; Pain 0/10; 23:59 BP 138 / 64; Pulse 62; Resp 17; Temp 97.5; Pulse Ox 98% ; Pain 0/10; bm8 11/14 01:16 BP 145 / 70; Pulse 66; Resp 17; Temp 97.5; Pulse Ox 95% ; Pain 00/10; bm8 02:31 BP 137 / 74; Pulse 64; Resp 17; Temp 97.5; Pulse Ox 96% ; Pain 0/10; bm8 11/13 21:49 Body Mass Index 27.46 (70.31 kg, 160.02 cm) cm10 11/13 21:49 Pain Scale: Adult cm10 23:59 Pain Scale: Adult bm8 11/14 01:16 Pain Scale: Adult bm8 02:31 Pain Scale: Adult bm8 [place] Coma Score: 11/13 23:59 Eye Response: spontaneous(4). Motor Response: obeys commands(6). Verbal Response: bm8 oriented(5). Total: 15. 11/14 02:31 Eye Response: spontaneous(4). Motor Response: obeys commands(6). Verbal Response: bm8 oriented(5). Total: 15. MDM: 11/13 21:48 Medical Screening Exam initiated [facility] 23:14 Differential diagnosis: hypertensive crisis, Malignant HTN. Data reviewed: vital signs, [facility] nurses notes, lab test result(s), EKG, radiologic studies, plain films. Consideration of Admission/Observation Escalation of care including admission/observation considered. I considered the following discharge prescriptions or medication management in the emergency department Medications were administered in the Emergency Department. See MAR. Independent interpretation of the following test(s) in the Emergency Department EKG: See my EKG interpretation above. Test considered but Not performed: CT: NO CT CHEST. Historians other than the Patient: Daughter/Son: DAUGHTER AND . Care significantly affected by the following chronic conditions: Diabetes, Hypertension, Obesity, [place]. Counseling: I had a detailed discussion with the patient and/or guardian regarding the historical points, exam findings, and any diagnostic results supporting the discharge/admit diagnosis, the presence of at least one elevated blood pressure reading (>120/80) during this emergency department visit, lab results, radiology results, the need for outpatient follow up, for definitive care, a family practitioner. 11/13 21:49 Order name: Basic Metabolic Panel; Complete Time: 01:25 zohreh 11/13 21:49 Order name: CBC with Diff; Complete Time: 01: zohreh 11/13 21:49 Order name: LFT's; Complete Time: 01:25 zohreh 11/13 21:49 Order name: Magnesium; Complete Time: 01: zohreh 11/13 21:49 Order name: NT PRO-BNP; Complete Time: : zohreh 11/13 21:49 Order name: PT-INR; Complete Time: 01: zohreh 11/13 21:49 Order name: Troponin HS; Complete Time: 01:25 [facility] 11/13 21:49 Order name: Urinalysis w/ reflexes; Complete Time: 00:27 zohreh 11/13 21:49 Order name: Lipase; Complete Time: 01:25 [facility] 11/13 22:01 Order name: Glucose, Ancillary Testing; Complete Time: 23:10 EDID 11/14 01:20 Order name: Glucose, Ancillary Testing; Complete Time: 01:25 EDID 11/14 01:27 Order name: BMP; Complete Time: 02:18 zohreh 11/14 01:27 Order name: Troponin High Sensitivity; Complete Time: 02:18 [facility] 11/13 21:49 Order name: XRAY Chest (1 view); Complete Time: 23:10 [facility] 11/13 21:49 Order name: EKG; Complete Time: 21:49 [facility] 11/13 21:49 Order name: Cardiac monitoring; Complete Time: 23:59 zohreh 11/13 21:49 Order name: EKG - Nurse/Tech; Complete Time: 23:59 zohreh 11/13 21:49 Order name: IV Saline Lock; Complete Time: 23:59 zohreh 11/13 21:49 Order name: Labs collected and sent; Complete Time: 23:59 zohreh 11/13 21:49 Order name: O2 Per Protocol; Complete Time: 23:32 zohreh 11/13 21:49 Order name: O2 Sat Monitoring; Complete Time: 23:32 zohreh EC/31 00:01 Rate is 66 beats/min. Rhythm is regular. QRS [place] is Normal. NV interval is normal. QRS zohreh interval is normal. QT interval is normal. No Q waves. T waves are Normal. No ST changes noted. Clinical impression: NSR w/ Non-specific ST/T Changes and No evidence of ischemia. Interpreted by me. Reviewed by me. Administered Medications: 11/13 23:45 Drug: Insulin Glargine Sub-Q 30 units Sub-Q once {Co-Signature: rusty (Segundo Zuñiga RN).} bm8 Route: Sub-Q; Site: right lower abdomen; 11/14 01:19 Follow up: Response: No adverse reaction 8 11/13 23:46 Drug: Insulin Regular Human IVP 8 units IVP once {Co-Signature: Segundo Fleming RN).} bm8 Route: IVP; Site: right forearm; 11/14 01:19 Follow up: Response: No adverse reaction 8 11/13 23:51 Drug: NS 0.9% IV 1000 ml IV at 1 bolus Per protocol; to be given as a bolus over 60 bm8 minutes Route: IV; Rate: 1 bolus; Site: right forearm; 11/14 01:19 Follow up: Response: No adverse reaction; IV Status: Completed infusion; IV Intake: bm8 1000ml 01:44 Drug: Potassium PO Effervescent Tablet 50 mEq PO once; dissolve in 4 ounces of water or bm8 juice Route: PO; 02:31 Follow up: Response: No adverse reaction bm8 Point of Care Testing: Blood Glucose: 11/13 21:51 Blood Glucose: 382 mg/dL; cm10 11/14 01:20 Blood Glucose: 181 mg/dL; bm8 Ranges: Critical Glucose Levels:Adult <50 mg/dl or >400 mg/dl <40 mg/dl or >180 mg/dl Disposition Summary: 11/14/24 02:19 Discharge Ordered Notes: Location: Home zohreh Problem: new zohreh Symptoms: have improved zohreh Condition: Stable zohreh Diagnosis - Essential (primary) hypertension zohreh - Type 1 diabetes mellitus with hyperglycemia zohreh - Adjustment disorder with anxiety - GOT UPSET zohreh - Chronic kidney disease, unspecified zohreh - Hypokalemia zohreh Followup: zohreh - With: Private Physician - When: 2 - 3 days - Reason: Recheck today's complaints, Continuance of care, Re-evaluation by your physician Discharge Instructions: - Discharge Summary Sheet zohreh - Adjustment Disorder, Adult zohreh - Potassium Content of Foods zohreh - Hyperglycemia zohreh - Hypertension, Adult zohreh - Hypertension, Adult, Bars-be-Yzxe zohreh - Blood Glucose Monitoring, Adult zohreh - Diabetes Mellitus and Nutrition, Adult zohreh - How to Take Your Blood Pressure, [id number]-tx-[id number] zohreh - Aspirin and Your Heart zohreh - Chronic Kidney Disease, Adult, [id number] zohreh - Chronic Kidney Disease, Adult zohreh - Hypokalemia zohreh - Managing Your Hypertension zohreh Forms: - Medication Reconciliation Form zohreh - Antibiotic Education zohreh - Prescription Opioid Use zohreh - Patient Portal Instructions zohreh - Leadership Thank You Letter zohreh Signatures: Dispatcher [employer] Bang Headley MD MD cha Martinez, Clarissa, RN RN cm10 Davonte Noyola RN RN bm8 Segundo Zuñiga RN ay Corrections: (The following items were deleted from the chart) 11/13 21:50 21:49 BASIC METABOLIC PANEL+C.LAB.BRZ ordered. EDMS EDMS 21:50 21:49 CBC+H.LAB.BRZ ordered. EDMS EDMS 21:50 21:49 HEPATIC FUNCTION+C.LAB.BRZ ordered. EDMS EDMS 21:50 21:49 MAGNESIUM+C.LAB.BRZ ordered. EDMS EDMS 21:50 21:49 PROBNP+C.LAB.BRZ ordered. EDMS EDMS 21:50 21:49 PROTIME (+INR)+COAG.LAB.BRZ ordered. EDMS EDMS 21:50 21:49 Troponin High Sensitivity+C.LAB.BRZ ordered. EDMS EDMS 21:50 21:49 Urinalysis+U.LAB.BRZ ordered. EDMS EDMS 21:50 21:49 LIPASE+C.LAB.BRZ ordered. EDMS EDMS
--- NOTE | 2024-11-14 02:20 | ER ---
Nurse's Notes [facility] Name: Marvin Ricketts Age: 79 yrs Sex: Male : 1945 Arrival Date: 11/13/2024 Time: 21:21 Bed 4 Private MD: Diagnosis: Essential (primary) hypertension;Type 1 diabetes mellitus with hyperglycemia;Adjustment disorder with anxiety-GOT UPSET;Chronic kidney disease, unspecified;Hypokalemia Presentation: 11/13 21:49 Chief complaint: Patient states: Elevated blood sugar. Pt has been out of insulin since cm10 Wednesday morning. Pt denies any other complaints. Coronavirus screen: Client denies travel out of the [place] in the last 14 days. Ebola Screen: Patient denies travel to an Ebola-affected area in the 21 days before illness onset. No symptoms or risks identified at this time. Initial Sepsis Screen: Does the patient meet any 2 criteria? No. Patient's initial sepsis screen is negative. Does the patient have a suspected source of infection? No. Patient's initial sepsis screen is negative. Risk Assessment: Do you want to hurt yourself or someone else? Patient reports no desire to harm self or others. Onset of symptoms was November 13, 2024. 21:49 Method Of Arrival: Ambulatory cm10 21:49 Acuity: EUGENIO 3 cm10 Triage Assessment: 21:51 General: Appears in no apparent distress. comfortable, Behavior is calm, cooperative. cm10 Neuro: No deficits noted. Level of Consciousness is awake, alert, obeys commands, Oriented to person, place, time, situation, Appropriate for age. Respiratory: No deficits noted. Airway is patent Respiratory effort is even, unlabored, Respiratory pattern is regular, symmetrical. Historical: - Allergies: 21:50 No Known Allergies; cm10 - PMHx: 21:50 Diabetes - IDDM; Hyperlipidemia; Hypertension; Myocardial infarction; cm10 - Immunization history:: Adult Immunizations up to date. - Infectious Disease History:: Denies. - Social history:: Smoking status: Patient denies any tobacco usage or history of. - Family history:: not pertinent. Screenin:11 [facility] ED Fall Risk Assessment (Adult) History of falling in the last 3 months, al5 including since admission No falls in past 3 months (0 pts) Confusion or Disorientation No (0 pts) Intoxicated or Sedated No (0 pts) Impaired Gait Yes (1 pt) Mobility Assist Device Used Yes (1 pt) Altered Elimination No (0 pt) Score/Fall Risk Level 0 - 2 = Low Risk Oriented to surroundings, Maintained a safe environment, Hourly rounding (assess needs \T\ fall precautionary measures) done. Abuse screen: Denies threats or abuse. Denies injuries from another. Nutritional screening: No deficits noted. Tuberculosis screening: No symptoms or risk factors identified. Assessment: 23:12 General: Appears in no apparent distress. Behavior is calm, cooperative. Pain: Denies al5 pain. Neuro: Level of Consciousness is awake, alert, obeys commands, Oriented to person, place, time, situation. Cardiovascular: Capillary refill < 3 seconds Patient's skin is warm and dry. Respiratory: Airway is patent Respiratory effort is even, unlabored, Respiratory pattern is regular, symmetrical. GI: Abdomen is non-distended, Reports high blood sugar, dizziness. : No signs and/or symptoms were reported regarding the genitourinary system. EENT: No signs and/or symptoms were reported regarding the EENT system. Derm: Skin is intact, is healthy with good turgor, Skin is pink, warm \T\ dry. normal. Musculoskeletal: walks with walker, full intact ROM in all extremities. 23:59 Reassessment: Patient appears in no apparent distress at this time. Patient and/or bm8 family updated on plan of care and expected duration. Pain level reassessed. Patient is alert, oriented x 3, equal unlabored respirations, skin warm/dry/pink. Patient denies pain at this time. GI: Abdomen is round non-distended, Bowel sounds present X 4 quads. Abd is soft and non tender X 4 quads. Patient currently denies abdominal pain, nausea, pain, vomiting. : No signs and/or symptoms were reported regarding the genitourinary system. EENT: No signs and/or symptoms were reported regarding the EENT system. Derm: No signs and/or symptoms reported regarding the dermatologic system. Musculoskeletal: No signs and/or symptoms reported regarding the musculoskeletal system. 11/14 01:16 Reassessment: Patient appears in no apparent distress at this time. Patient and/or bm8 family updated on plan of care and expected duration. Pain level reassessed. Patient is alert, oriented x 3, equal unlabored respirations, skin warm/dry/pink. Patient denies pain at this time. Patient states feeling better. Patient states symptoms have improved. 02:31 Reassessment: Patient appears in no apparent distress at this time. No changes from bm8 previously documented assessment. Patient and/or family updated on plan of care and expected duration. Pain level reassessed. Patient is alert, oriented x 3, equal unlabored respirations, skin warm/dry/pink. Patient denies pain at this time. Patient states feeling better. Patient states symptoms have improved. Vital Signs: 11/13 21:49 BP 146 / 78; Pulse 70; Resp 16; Temp 97.5(TE); Pulse Ox 98% on R/A; Weight 70.31 kg; cm10 Height 5 ft. 3 in. ; Pain 0/10; 23:59 BP 138 / 64; Pulse 62; Resp 17; Temp 97.5; Pulse Ox 98% ; Pain 0/10; bm8 11/14 01:16 BP 145 / 70; Pulse 66; Resp 17; Temp 97.5; Pulse Ox 95% ; Pain 00/10; bm8 02:31 BP 137 / 74; Pulse 64; Resp 17; Temp 97.5; Pulse Ox 96% ; Pain 0/10; bm8 11/13 21:49 Body Mass Index 27.46 (70.31 kg, 160.02 cm) cm10 12 21:49 Pain Scale: Adult cm10 23:59 Pain Scale: Adult bm8 11/14 01:16 Pain Scale: Adult bm8 02:31 Pain Scale: Adult bm8 [place] Coma Score: 11/13 23:59 Eye Response: spontaneous(4). Motor Response: obeys commands(6). Verbal Response: bm8 oriented(5). Total: 15. 11/14 02:31 Eye Response: spontaneous(4). Motor Response: obeys commands(6). Verbal Response: bm8 oriented(5). Total: 15. ED Course: 11/13 21:23 Patient arrived in ED. ra3 21:48 Bang Lazar MD is Attending Physician. zohreh 21:50 Triage completed. cm10 21:51 Arm band placed on left wrist. Patient placed in waiting room. cm10 22:34 XRAY Chest (1 view) In Process Unspecified. EDMS 23:11 Patient has correct armband on for positive identification. Bed in low position. Call al5 light in reach. Side rails up X2. Provided Education on: plan of care, need for IV access. 23:11 No provider procedures requiring assistance completed. al5 23:14 Mily Tobar, RN is Primary Nurse. al5 23:20 Missed attempt(s): 20 gauge in left forearm. Bleeding controlled, band aid applied, sa1 catheter tip intact. 23:59 Client placed on continuous cardiac and pulse oximetry monitoring. NIBP monitoring bm8 applied. Pulse ox on. NIBP on. Door closed. Noise minimized. Pillow given. Verbal reassurance given. Head of bed elevated. 23:59 Initial lab(s) drawn, Lab(s) recollected, by me, sent to lab. EKG done, by ED staff, bm8 reviewed by Bang Lazar MD. Inserted saline lock: 20 gauge in right forearm, using aseptic technique. Blood collected. Flushed with 10 mL NS. Patient maintains SpO2 saturation greater than 95% on room air. 11/14 02:31 Provided Education on: post er care. bm8 02:31 IV discontinued, intact, bleeding controlled, No redness/swelling at site. Pressure bm8 dressing applied. Administered Medications: 11/13 23:45 Drug: Insulin Glargine Sub-Q 30 units Sub-Q once {Co-Signature: rusty (Segundo Zuñiga RN).} bm8 Route: Sub-Q; Site: right lower abdomen; 11/14 01:19 Follow up: Response: No adverse reaction bm8 11/13 23:46 Drug: Insulin Regular Human IVP 8 units IVP once {Co-Signature: rusty (Segundo Zuñiga RN).} bm8 Route: IVP; Site: right forearm; 11/14 01:19 Follow up: Response: No adverse reaction bm8 11/13 23:51 Drug: NS 0.9% IV 1000 ml IV at 1 bolus Per protocol; to be given as a bolus over 60 bm8 minutes Route: IV; Rate: 1 bolus; Site: right forearm; 11/14 01:19 Follow up: Response: No adverse reaction; IV Status: Completed infusion; IV Intake: bm8 1000ml 01:44 Drug: Potassium PO Effervescent Tablet 50 mEq PO once; dissolve in 4 ounces of water or bm8 juice Route: PO; :31 Follow up: Response: No adverse reaction bm8 Medication: 11/13 23:12 VIS not applicable for this client. al5 Point of Care Testing: Blood Glucose: 21:51 Blood Glucose: 382 mg/dL; cm10 11/14 01:20 Blood Glucose: 181 mg/dL; bm8 Ranges: Intake: 01:19 IV: 1000ml; Total: 1000ml. bm8 Outcome: 02:19 Discharge ordered by . zohreh 02:31 Discharged to home ambulatory, with family, bm8 02:31 Condition: stable 02:31 Discharge instructions given to patient, family, Instructed on discharge instructions, follow up and referral plans. no drinking with medication, no driving heavy equipment, medication usage, safety practices, Demonstrated understanding of instructions, follow-up care, medications, 02:32 Patient left the ED. bm8 Signatures: Dispatcher [employer] EDMS Bang Lazar MD MD cha Martinez, Clarissa, RN RN cm10 Graciela Nunez ra3 Davonte Noyola RN RN bm8 Mily Tobar RN RN al5 Sultan marbin Soto Awudu RN ay
[2024-11-14 10:06] VITALS: TEMP 97.5
[2024-11-14 10:12] VITALS: BP 137/74; O2SAT 96
--- NOTE | 2024-11-17 12:51 | EKG ---
Test Date: 2024-11-13 Test Time: 23:48:20 Eligibility Clerk: BRAYDEN MEASUREMENT RESULTS: Intervals: Rate: 66 OK: 226 QRSD: 104 QT: 436 QTc: 457 [place]: P: 17 OK: 226 QRS: -38 T: 2 INTERPRETIVE STATEMENTS: Sinus rhythm with 1st degree AV block Left axis deviation Nonspecific ST abnormality Abnormal ECG Compared to ECG 03/29/2021 15:02:47 First degree AV block now present ST (T wave) deviation now present Electronically Signed On 11-17-24 12:48:58 MARKETING TECH[employer]OLOG[employer]IST by Ivan Gan
== END 2024-11-14 02:32 | disposition home or self-care (01) ==
LOC: ER 21:21
DX: I10 Essential (primary) hypertension (principal); E10.65 Type 1 diabetes mellitus with hyperglycemia; F43.22 Adjustment disorder with anxiety; E87.6 Hypokalemia; I12.9 Hypertensive chronic kidney disease with stage 1 through stage 4 chronic kidney disease, or unspecified chronic kidney disease; N18.9 Chronic kidney disease, unspecified
CPT/HCPCS: 96361; 93005; 85025; 80048 ×2; 36415; 83735; 85610; 82947 ×2; 80076; 81003; 84484 ×2; 83690; 83880; 71045; 96372; 96374; 99285; J7030

== ENCOUNTER 2025-03-27 10:35 | Emergency (ER) | payer OTHER ==
[2025-03-27] MEDS ORDERED: HYDROCODONE/APAP 5/325 MG TAB ONE (11:02)
--- NOTE | 2025-03-27 12:08 | RAD REPORT ---
EXAM: CT CHEST, ABDOMEN AND PELVIS WITHOUT CONTRAST CLINICAL INDICATION: Chest and abdominal pain status post fall TECHNIQUE: CT chest, abdomen and pelvis was performed, without IV contrast, as per department protoco l. Axial, sagittal and coronal reconstructions were obtained. One or more of the following dose reduction techniques were used: Automated exposure control, adjustment of the mA and/or kV according to the patient size, and/or iterative reconstruction. Unless otherwise specified, incidental findings do not require dedicated imaging follow-up. The lack of IV and oral contrast limits evaluation of the mediastinum, candace, vessels, organs and bud l. COMPARISON: CT abdomen 2023 FINDINGS: Minimally displaced fracture left seventh lateral rib. No pneumothorax A pulmonary contusion is not present. No pleural effusion. No mediastinal hematoma. Liver, spleen, pancreas, adrenals kidneys and bladder do not demonstrate a traumatic injury. Tiny nonobstructing renal calculi. There is no evidence of diverticulitis. Normal appendix IMPRESSION: Minimally displaced fracture seventh left lateral rib
--- NOTE | 2025-03-27 13:08 | ER ---
Nurse's Notes [facility] Name: Marvin Ricketts Age: 79 yrs Sex: Male : 1945 Arrival Date: 03/27/2025 Time: 10:35 Bed 14 Private MD: Diagnosis: Seventh rib fracture left side, chest contusion Presentation: 03/27 10:52 Chief complaint: Patient states: fell off the bed and hit a dresser on left side, me1 happened two days ago , pain to front of left ribs. 10:52 Acuity: EUGENIO 4 iw 10:53 Coronavirus screen: At this time, unable to obtain information related to travel iw outside the [place] Ebola Screen: No symptoms or risks identified at this time. Initial Sepsis Screen: Does the patient meet any 2 criteria? No. Patient's initial sepsis screen is negative. Does the patient have a suspected source of infection? No. Patient's initial sepsis screen is negative. Risk Assessment: Do you want to hurt yourself or someone else? Patient reports no desire to harm self or others. Onset of symptoms was March 25, 2025. 10:53 Method Of Arrival: Wheelchair iw Historical: - Allergies: 10:54 No Known Allergies; iw - PMHx: 10:54 Diabetes - IDDM; Hyperlipidemia; Hypertension; Myocardial infarction; iw - Immunization history:: Adult Immunizations up to date. - Infectious Disease History:: Denies. - Social history:: Smoking status: unknown. Screenin:16 [facility] ED Fall Risk Assessment (Adult) History of falling in the last 3 months, me1 including since admission Yes- single mechanical fall (1 pt) Confusion or Disorientation No (0 pts) Intoxicated or Sedated No (0 pts) Impaired Gait No (0 pts) Mobility Assist Device Used No (0 pt) Altered Elimination No (0 pt) Score/Fall Risk Level 0 - 2 = Low Risk Maintained a safe environment, Provided non-skid footwear, Hourly rounding (assess needs \T\ fall precautionary measures) done. Abuse screen: Denies threats or abuse. Nutritional screening: No deficits noted. Tuberculosis screening: No symptoms or risk factors identified. Assessment: 11:16 General: Appears uncomfortable, well groomed, well developed, well nourished, Behavior me1 is calm, cooperative, appropriate for age, Reports fell off the bed and hit a dresser on left side, happened two days ago , pain to anterior left ribs. Pain: Complains of pain in left lateral anterior chest Pain does not radiate. Pain currently is 10 out of 10 on a pain scale. Quality of pain is described as sharp, Pain began 2-3 days ago. Is continuous. Neuro: Level of Consciousness is awake, alert, obeys commands, Oriented to person, place, time, situation, Appropriate for age. Cardiovascular: Patient's skin is warm and dry. Respiratory: Reports pain with respiration Airway is patent Respiratory effort is even, unlabored, Respiratory pattern is regular, symmetrical. GI: No signs and/or symptoms were reported involving the gastrointestinal system. : No signs and/or symptoms were reported regarding the genitourinary system. EENT: No signs and/or symptoms were reported regarding the EENT system. Derm: Skin is intact, is healthy with good turgor, Skin is pink, warm \T\ dry. Musculoskeletal: No signs and/or symptoms reported regarding the musculoskeletal system. Vital Signs: 10:53 BP 120 / 47; Pulse 82; Resp 16; Temp 98; Pulse Ox 95% on R/A; Weight 68.04 kg; Height 5 iw ft. 3 in. ; Pain 10/10; 12:00 BP 142 / 70; Pulse 79; Resp 15; Pulse Ox 96% ; me1 13:00 BP 160 / 86; Pulse 68; Resp 16; Pulse Ox 96% ; me1 10:53 Body Mass Index 26.57 (68.04 kg, 160.02 cm) iw 10:53 Pain Scale: Adult iw ED Course: 10:40 Patient arrived in ED. gl 10:44 Lesley Langston MD is Attending Physician. sp3 10:53 Triage completed. iw 11:06 Guerda Milton, MRAK is Primary Nurse. me1 11:16 Patient has correct armband on for positive identification. Bed in low position. Call me1 light in reach. Side rails up X2. Provided Education on: POC. Verbalized understanding.. Client placed on continuous cardiac and pulse oximetry monitoring. NIBP monitoring applied. Pulse ox on. NIBP on. 11:16 No provider procedures requiring assistance completed. me1 11:31 CT Chest Abdomen Pelvis W/O Contrast In Process Unspecified. EDMS 13:15 Arm band placed on Patient placed in an exam room. me1 13:16 Patient did not have IV access during this emergency room visit. me1 Administered Medications: 11:10 Drug: HYDROcodone-acetaminophen PO 5 mg-325 mg 2 tabs PO once Route: PO; me1 13:10 Follow up: Response: No adverse reaction; Pain is decreased me1 Medication: 11:16 VIS not applicable for this client. me1 Outcome: 13:07 Discharge ordered by . sp3 13:16 Discharged to home ambulatory, with significant other, me1 13:16 Condition: stable 13:16 Discharge instructions given to patient, family, Instructed on discharge instructions, follow up and referral plans. medication usage, Demonstrated understanding of instructions, follow-up care, medications, Prescriptions given X 1, 13:17 Patient left the ED. me1 Signatures: Dispatcher [employer] Shirley Pitt RN RN iw Lesley Langston MD MD sp3 Guerda Milton RN RN me1 Darlin Chan, Reg Reg gl Corrections: (The following items were deleted from the chart) 10:54 10:53 BP 120 / 47; Pulse 82bpm; Resp 16bpm; Pulse Ox 95% RA; Temp 98F; Pain 10, iw Adult; iw 11:16 10:52 Chief complaint: Patient states: fell off the bed and hit a dresser on left side, me1 happened two days ago , pain to front of left ribs iw
--- NOTE | 2025-03-27 13:08 | EDPHYS ---
Physician Documentation [facility] Name: Marvin Ricketts Age: 79 yrs Sex: Male : 1945 Arrival Date: 03/27/2025 Time: 10:35 Bed 14 Private MD: ED Physician Lesley Langston HPI: 03/27 11:06 This 79 yrs old Male presents to ER via Wheelchair with complaints of Fall sp3 Injury. 11:06 79-year-old male with history of diabetes, hyperlipidemia, hypertension, prior IN, on sp3 antiplatelet agents that presents to the ED with left-sided rib pain after mechanical fall where he fell out of bed accidentally and landed on a box. Injury occurred 2 days ago. Patient denies any other symptoms including shortness of breath, back pain, abdominal pain, headache or head injury, or any other signs or symptoms on ROS at this time.. Historical: - Allergies: 10:54 No Known Allergies; iw - PMHx: 10:54 Diabetes - IDDM; Hyperlipidemia; Hypertension; Myocardial infarction; iw - Immunization history:: Adult Immunizations up to date. - Infectious Disease History:: Denies. - Social history:: Smoking status: unknown. ROS: 11:06 Constitutional: Negative for fever, chills, and weight loss, Eyes: Negative for injury, sp3 pain, redness, and discharge, ENT: Negative for injury, pain, and discharge, Neck: Negative for injury, pain, and swelling, Cardiovascular: Negative for chest pain, palpitations, and edema, Respiratory: Negative for shortness of breath, cough, wheezing, and pleuritic chest pain, Abdomen/GI: Negative for abdominal pain, nausea, vomiting, diarrhea, and constipation, Back: Negative for injury and pain, Skin: Negative for injury, rash, and discoloration, Neuro: Negative for headache, weakness, numbness, tingling, and seizure, Psych: Negative for depression, anxiety, suicide ideation, homicidal ideation, and hallucinations, Allergy/Immunology: Negative for hives, rash, and allergies, Endocrine: Negative for neck swelling, polydipsia, polyuria, polyphagia, and marked weight changes, Hematologic/Lymphatic: Negative for swollen nodes, abnormal bleeding, and unusual bruising, 11:06 All other systems are negative, Exam: 11:07 Constitutional: This is a well developed, well nourished patient who is awake, alert, sp3 and in no acute distress. Head/Face: Normocephalic, atraumatic. Eyes: Pupils equal round and reactive to light, extra-ocular motions intact. Lids and lashes normal. Conjunctiva and sclera are non-icteric and not injected. Cornea within normal limits. Periorbital areas with no swelling, redness, or edema. ENT: Nares patent. No nasal discharge, no septal abnormalities noted. External auditory canals are clear. Oropharynx with no redness, swelling, or masses, exudates, or evidence of obstruction, uvula midline. Mucous membranes moist. Neck: Trachea midline, no thyromegaly or masses palpated, and no cervical lymphadenopathy. Supple, full range of motion without nuchal rigidity, or vertebral point tenderness. No Meningismus. Cardiovascular: Regular rate and rhythm with a normal S1 and S2. No gallops, murmurs, or rubs. Normal PMI, no JVD. No pulse deficits. Respiratory: Lungs have equal breath sounds bilaterally, clear to auscultation and percussion. No rales, rhonchi or wheezes noted. No increased work of breathing, no retractions or nasal flaring. Back: No spinal tenderness. No costovertebral tenderness. Full range of motion. Skin: Warm, dry with normal turgor. Normal color with no rashes, no lesions, and no evidence of cellulitis. MS/ Extremity: Pulses equal, no cyanosis. Neurovascular intact. Full, normal range of motion. Neuro: Awake and alert, GCS 15, oriented to person, place, time, and situation. Cranial nerves II-XII grossly intact. Motor strength 5/5 in all extremities. Sensory grossly intact. Cerebellar exam normal. Normal gait. Psych: Awake, alert, with orientation to person, place and time. Behavior, mood, and affect are within normal limits. 11:07 Chest/axilla: Patient has pain to palpation of the left lateral ribs without any crepitus, subcutaneous air. Mild pain to the left upper quadrant of the abdomen as well. No peritoneal signs, rebound or guarding.. Vital Signs: 10:53 BP 120 / 47; Pulse 82; Resp 16; Temp 98; Pulse Ox 95% on R/A; Weight 68.04 kg; Height 5 iw ft. 3 in. ; Pain 10/10; 12:00 BP 142 / 70; Pulse 79; Resp 15; Pulse Ox 96% ; me1 13:00 BP 160 / 86; Pulse 68; Resp 16; Pulse Ox 96% ; me1 10:53 Body Mass Index 26.57 (68.04 kg, 160.02 cm) iw 10:53 Pain Scale: Adult iw MDM: 10:57 Medical Screening Exam initiated sp3 11:07 Data reviewed: vital signs, nurses notes, old medical records, radiologic studies. ED sp3 course: Mechanical fall 2 days ago with left rib and left upper quadrant abdominal pain. Differential diagnosis includes chest contusion, abdominal wall contusion, internal traumatic injury, among others. I am not highly suspicious of acute coronary syndrome, [place] or other medical etiology. Patient has clear history of fall with no gaps in story. Will obtain CT scan of the chest and abdomen without contrast and administer [place] for p.o. pain control. Disposition discharge home if scan is negative.. 13:06 ED course: Seventh rib fracture noted on the left side. Remainder of exam negative. sp3 Will safely discharge him home on oral pain medication.. 03/27 11:01 Order name: CT Chest Abdomen Pelvis W/O Contrast; Complete Time: 12:55 sp3 Administered Medications: 11:10 Drug: HYDROcodone-acetaminophen PO 5 mg-325 mg 2 tabs PO once Route: PO; me1 13:10 Follow up: Response: No adverse reaction; Pain is decreased me1 Disposition Summary: 03/27/25 13:07 Discharge Ordered Notes: Location: Home sp3 Condition: Stable sp3 Diagnosis - Seventh rib fracture left side, chest contusion sp3 Followup: sp3 - With: Private Physician - When: Upon discharge from the Emergency Department - Reason: Continuance of care Discharge Instructions: - Discharge Summary Sheet sp3 - Rib Fracture sp3 Forms: - Medication Reconciliation Form sp3 - Antibiotic Education sp3 - Prescription Opioid Use sp3 - Patient Portal Instructions sp3 - Leadership Thank You Letter sp3 Prescriptions: - Tramadol 50 mg Oral Tablet - take 1 tablet ORAL route every 8 hours as needed; 12 tablet; Refills: 0, sp3 Product Selection Permitted Signatures: Dispatcher [employer] Shirley Pitt RN RN iw Lesley Langston MD MD sp3 Eddleman, Guerda, RN RN me1 Corrections: (The following items were deleted from the chart) 13:08 [email or web address] ordered. EDMS EDMS 13:10 11:08 EKG - Nurse/Tech ordered. sp3 me1
[2025-03-27 13:22] VITALS: TEMP 98
[2025-03-27 13:23] VITALS: O2SAT 96
[2025-03-27 13:24] VITALS: BP 160/86
== END 2025-03-27 13:17 | disposition home or self-care (01) ==
LOC: ER 10:35
DX: S22.32XA Fracture of one rib, left side, initial encounter for closed fracture (principal); W06.XXXA Fall from bed, initial encounter; E11.9 Type 2 diabetes mellitus without complications; I10 Essential (primary) hypertension; I25.2 Old myocardial infarction
CPT/HCPCS: 71250; 74176; 99284

== ENCOUNTER 2025-04-03 18:19 | Emergency (ER) | payer OTHER ==
--- NOTE | 2025-04-03 21:15 | RAD REPORT ---
EXAM: CT brain without contrast HISTORY: PAIN COMPARISON: 03/29/2021 TECHNIQUE: Multiple contiguous axial images were obtained and a CT of the brain without contrast. Sag ittal and coronal reformats were performed. FINDINGS: No evidence of hydrocephalus, intracranial hemorrhage, or extra-axial fluid collection. Left parieto-occipital focus of encephalomalacia, stable. Right centrum semiovale bowel asymmetric fo cus of mild hypodensity, may relate to a small remote infarct or asymmetric chronic small vessel ischemic, stable. Otherwise stable mild periventricular and deep white matter chronic microvascular i schemic changes present. The calvarium is intact. The visualized paranasal sinuses and mastoid air cells are essentially clear . IMPRESSION: No evidence of acute intracranial abnormality. Stable chronic findings as above. EXAM: CT of the cervical spine without contrast HISTORY: PAIN COMPARISON: None TECHNIQUE: Multiple contiguous axial images were obtained in a CT of the cervical spine without contr ast. Sagittal and coronal reformats were performed. FINDINGS: The vertebral bodies demonstrate normal height and alignment. No evidence of acute fracture or subluxation.. No degenerative changes are present. No prevertebral soft tissue swelling is seen. The posterior facets are well aligned. Normal alignment of the skull base with the cervical spine is seen. The lung apices are unremarkable. IMPRESSION: No evidence of acute osseous abnormality of the cervical spine.
--- NOTE | 2025-04-03 21:19 | RAD REPORT ---
EXAMINATION: ONE VIEW CHEST XR CLINICAL INDICATION: Male, 79 years old.,PAIN TECHNIQUE: Frontal chest projection is submitted. Examination is limited by patient positioning and t echnique. COMPARISON: 11/13/2024 FINDINGS: The lungs are well inflated and clear. No pneumothorax or sizable effusion. The heart is normal in s ize. Mediastinal contours are unchanged. IMPRESSION: No acute intrathoracic abnormalities.
--- NOTE | 2025-04-03 21:44 | RAD REPORT ---
EXAM: XR Knee Left 3 View HISTORY: [facility] MAIN PAIN Bed Name: [id number] COMPARISON: None TECHNIQUE: 3 views of the left knee were obtained. FINDINGS: Trace knee effusion is seen. There is no evidence of acute fracture or dislocation. Linear sclerotic line along the posterior tibial metaphysis, nonspecific. No significant degenerative changes are seen. Vascular calcifications. No other Soft tissue swelling or other soft tissue abnorm ality is present. IMPRESSION: Trace joint effusion. Exaggerated linear density along the posterior tibial metaphysis la terally, could be projectional, or related to trabecular subtle compression fracture
--- NOTE | 2025-04-03 22:45 | EDPHYS ---
Physician Documentation [facility] Name: Marvin Ricketts Age: 79 yrs Sex: Male : 1945 Arrival Date: 04/03/2025 Time: 18:19 Bed 6 Private MD: ED Physician Minor Yeboah HPI: 04/03 22:49 This 79 yrs old Male presents to ER via Wheelchair with complaints of Fall kb Injury. 22:49 Patient is a 79-year-old male who presents for knee pain after fall that occurred kb around noon today. States he was sitting on a bench outside and stood up to and side too quickly, lost his balance and fell down. States he hit his left knee, left elbow and left side of his forehead. Denies LOC. Reports the most pain in the left knee.. Historical: - Home Meds: 18:42 clopidogrel 75 mg Oral tab 1 tab once daily [Active]; db - PMHx: 18:42 Diabetes - IDDM; Hyperlipidemia; Hypertension; Myocardial infarction; db - Immunization history:: Adult Immunizations unknown. - Infectious Disease History:: Denies. - Immunization history: Last tetanus immunization: - up to date. - Social history:: Smoking status: Patient denies any tobacco usage or history of. ROS: 22:46 Constitutional: As per HPI kb Exam: 22:46 Constitutional: This is a well developed, well nourished patient who is awake, alert, kb and in no acute distress. ENT: Moist Mucous membranes Cardiovascular: Regular rate Respiratory: Respirations even and unlabored. No increased work of breathing. Talking in full sentences Abdomen/GI: Soft, non-tender. No distention Skin: Warm, dry with normal turgor. Normal color. Neuro: Awake and alert, GCS 15, oriented to person, place, time, and situation. 22:46 Head/face: Noted is no obvious of injury or deformity except abrasion(s), that are mild, of the left side of forehead, 22:46 Musculoskeletal/extremity: Extremities: grossly normal except: noted in the left elbow: abrasion, noted in the left knee: abrasion, contusion, pain, swelling, ROM: intact in all extremities, Circulation is intact in all extremities. Sensation intact. Weight bearing: can bear weight with assistance only, Vital Signs: 18:40 BP 132 / 73; Pulse 88; Resp 18; Temp 98.6; Pulse Ox 93% ; db 20:41 BP 140 / 77; Pulse 86; Resp 16; Pulse Ox 95% on R/A; kd3 22:36 BP 163 / 83; Pulse 78; Resp 19; Pulse Ox 97% on R/A; kd3 [place] Coma Score: 20:40 Eye Response: spontaneous(4). Motor Response: obeys commands(6). Verbal Response: kd3 oriented(5). Total: 15. Trauma Score (Adult): 20:40 Eye Response: spontaneous(1); Verbal Response: oriented(1); Motor Response: obeys kd3 commands(2); Systolic BP: > 89 mm Hg(4); Respiratory Rate: 10 to 29 per min(4); [place] Score: 15; Trauma Score: 12 MDM: 18:34 Medical Screening Exam initiated kb 22:48 Data reviewed: vital signs, nurses notes. kb 22:48 Differential diagnosis: abrasion, closed head injury, contusion, fracture. Historians kb other than the Patient: Daughter/Son: daughter. Counseling: I had a detailed discussion with the patient and/or guardian regarding the historical points, exam findings, and any diagnostic results supporting the discharge/admit diagnosis, lab results, radiology results, the need for outpatient follow up, a family practitioner, to return to the emergency department if symptoms worsen or persist or if there are any questions or concerns that arise at home. 04/03 22:48 Order name: Glucose, Ancillary Testing; Complete Time: 22:48 EDMS 04/03 18:44 Order name: Knee Left 3 View XRAY; Complete Time: 21:47 kb 04/03 18:44 Order name: Chest Single View XRAY; Complete Time: 21:23 kb 04/03 18:44 Order name: CT Head C Spine; Complete Time: 21:23 kb 04/03 21:47 Order name: Blood Glucose Level; Complete Time: 22:36 kb 04/03 22:44 Order name: Knee Immobilizer; Complete Time: 23:08 kb Administered Medications: No medications were administered Disposition Summary: 04/03/25 22:44 Discharge Ordered Notes: Location: Home kb Condition: Stable kb Diagnosis - Contusion of left knee kb - Abrasion of left forearm kb - Unspecified injury of head, initial encounter kb Followup: kb - With: Emergency Department - When: As needed - Reason: Worsening of condition Followup: kb - With: Private Physician - When: 2 - 3 days - Reason: Recheck today's complaints, Continuance of care, Re-evaluation by your physician Discharge Instructions: - Discharge Summary Sheet kb - Contusion, [id number] kb - Abrasion, [id number] kb - Head Injury, Adult, [id number] kb Forms: - Medication Reconciliation Form kb - Antibiotic Education kb - Prescription Opioid Use kb - Patient Portal Instructions kb - Leadership Thank You Letter kb Prescriptions: - orphenadrine citrate 100 mg Oral Tablet Sustained Release - take 1 tablet ORAL route 2 times per day As needed; 20 tablet; Refills: 0, kb Product Selection Permitted Signatures: Dispatcher [employer] EDMS Kamini Manzano, ASSISTANT PROFESSOR OF PSYCHOLOGY-C ASSISTANT PROFESSOR OF PSYCHOLOGY-Dinah Haro, RN RN kd3 Meghana Tapia, RN RN db Corrections: (The following items were deleted from the chart) 18:44 18:44 Knee Left 3 View+RAD.RAD.BRZ ordered. EDMS EDMS 18:45 18:45 Chest Single View+RAD.RAD.BRZ ordered. EDMS EDMS 18:45 18:45 Head C Spine MPR Wo Con+CT.RAD.BRZ ordered. EDMS EDMS
--- NOTE | 2025-04-03 22:45 | ER ---
Nurse's Notes [facility] Name: Marvin Ricketts Age: 79 yrs Sex: Male : 1945 Arrival Date: 04/03/2025 Time: 18:19 Bed 6 Private MD: Diagnosis: Contusion of left knee;Abrasion of left forearm;Unspecified injury of head, initial encounter Presentation: 04/03 18:40 Chief complaint: Patient states: STATES FELL TODAY WHILE AT HOME. STOOD UP AND LOST db BALANCE AND FELL HIT LEFT ELBOW, LEFT FOREHEAD AND RECENTLY HERE FOR FALL AND HAD FRX RIB. Coronavirus screen: Client denies travel out of the [place] in the last 14 days. At this time, the client does not indicate any symptoms associated with coronavirus-19. 18:40 Method Of Arrival: Wheelchair db 18:44 Ebola Screen: Patient negative for fever greater than or equal to 101.5 degrees db Fahrenheit, and additional compatible Ebola Virus Disease symptoms Patient denies exposure to infectious person. Patient denies travel to an Ebola-affected area in the 21 days before illness onset. No symptoms or risks identified at this time. Initial Sepsis Screen: Does the patient meet any 2 criteria? No. Patient's initial sepsis screen is negative. Does the patient have a suspected source of infection? No. Patient's initial sepsis screen is negative. Risk Assessment: Do you want to hurt yourself or someone else? Patient reports no desire to harm self or others. Onset of symptoms was April 03, 2025. 18:44 Acuity: EUGENIO 3 db 20:40 Care prior to arrival: None. Mechanism of Injury: Fall from standing position. Trauma kd3 event details: Injury occurred in the [facility]. Triage Assessment: 18:42 General: Appears in no apparent distress. comfortable, Behavior is calm, cooperative. db Pain: Complains of pain in forehead, left antecubital area and left knee. Neuro: Level of Consciousness is awake, alert, obeys commands, Oriented to person, place, time, situation. Respiratory: Airway is patent Respiratory effort is even, unlabored, Respiratory pattern is regular, symmetrical. Derm: Wound noted forehead. Injury Description: Abrasion sustained to forehead and left arm. Historical: - Home Meds: 18:42 clopidogrel 75 mg Oral tab 1 tab once daily [Active]; db - PMHx: 18:42 Diabetes - IDDM; Hyperlipidemia; Hypertension; Myocardial infarction; db - Immunization history:: Adult Immunizations unknown. - Infectious Disease History:: Denies. - Immunization history: Last tetanus immunization: - up to date. - Social history:: Smoking status: Patient denies any tobacco usage or history of. Screenin:39 [facility] ED Fall Risk Assessment (Adult) History of falling in the last 3 months, kd3 including since admission Yes- fall prone (multiple falls) (3 pts) Confusion or Disorientation No (0 pts) Intoxicated or Sedated No (0 pts) Impaired Gait No (0 pts) Mobility Assist Device Used No (0 pt) Altered Elimination No (0 pt) Score/Fall Risk Level 3 or more points = High Risk Maintained a safe environment. Abuse screen: Denies threats or abuse. Denies injuries from another. Nutritional screening: No deficits noted. Tuberculosis screening: No symptoms or risk factors identified. Primary Survey: 20:40 NO uncontrolled hemorrhage observed. Breathing/Chest: Spontaneous respiratory effort, kd3 equal unlabored respirations, breath sounds clear bilaterally, regular pattern, symmetrical chest rise and fall. Circulation: No external hemorrhage present. Regular and strong central pulse, skin warm/dry/normal color. Disability Pupils are equal, round, reactive to light and accommodation. Exposure/Environment: A warming method has been applied: A warm blanket has been provided to the patient. 20:41 Reassessment Breathing:. kd3 Assessment: 20:39 General: Appears in no apparent distress. Behavior is calm, cooperative. Pain: kd3 Complains of pain in right posterior aspect of neck, right lateral aspect of neck and right anterior aspect of neck and left knee. Neuro: Level of Consciousness is awake, alert, obeys commands, Oriented to person, place, time, situation. Cardiovascular: Capillary refill < 3 seconds Patient's skin is warm and dry. Respiratory: Airway is patent Trachea midline Respiratory effort is even, unlabored, Respiratory pattern is regular, symmetrical. 23:09 Reassessment: No changes from previously documented assessment. Patient is alert, kd3 oriented x 3, equal unlabored respirations, skin warm/dry/pink. Patient states feeling better. Patient states symptoms have improved. Vital Signs: 18:40 BP 132 / 73; Pulse 88; Resp 18; Temp 98.6; Pulse Ox 93% ; db 20:41 BP 140 / 77; Pulse 86; Resp 16; Pulse Ox 95% on R/A; kd3 22:36 BP 163 / 83; Pulse 78; Resp 19; Pulse Ox 97% on R/A; kd3 Malick Coma Score: 20:40 Eye Response: spontaneous(4). Motor Response: obeys commands(6). Verbal Response: kd3 oriented(5). Total: 15. Trauma Score (Adult): 20:40 Eye Response: spontaneous(1); Verbal Response: oriented(1); Motor Response: obeys kd3 commands(2); Systolic BP: > 89 mm Hg(4); Respiratory Rate: 10 to 29 per min(4); [place] Score: 15; Trauma Score: 12 ED Course: 18:20 Patient arrived in ED. mr 18:34 Kamini Manzano FNP-C is [facility]. kb 18:34 Minor Yeboah DO is Attending Physician. kb 18:44 Triage completed. db 18:44 Arm band placed on Patient placed in waiting room. db 19:12 CT Head C Spine In Process Unspecified. EDMS 20:03 Knee Left 3 View XRAY In Process Unspecified. EDMS 20:03 Chest Single View XRAY In Process Unspecified. EDMS 20:33 Dinah Major, RN is Primary Nurse. kd3 20:40 Patient maintains SpO2 saturation greater than 95% on room air. Thermoregulation: warm kd3 blanket given to patient. 20:41 Patient has correct armband on for positive identification. Provided Education on: fall kd3 precautions . 23:08 No provider procedures requiring assistance completed. Patient did not have IV access kd3 during this emergency room visit. Administered Medications: No medications were administered Medication: 20:41 VIS not applicable for this client. kd3 Outcome: 22:44 Discharge ordered by . kb 23:09 Discharged to home via wheelchair, with family, kd3 23:09 Condition: stable 23:09 Discharge instructions given to patient, family, Instructed on discharge instructions, follow up and referral plans. medication usage, Demonstrated understanding of instructions, follow-up care, medications, Prescriptions given X 1, 23:09 Patient left the ED. kd3 Signatures: Dispatcher [employer] EDMS Kamini Manzano FNP-C FNP-Elizabeth Francisco, Reg Reg mr Dinah Maojr, RN RN kd3 Meghana Tapia, RN RN db
[2025-04-03 23:33] VITALS: TEMP 98.6
[2025-04-03 23:36] VITALS: BP 163/83; O2SAT 97
== END 2025-04-03 23:09 | disposition home or self-care (01) ==
LOC: ER 18:19
DX: S00.81XA Abrasion of other part of head, initial encounter (principal); S50.812A Abrasion of left forearm, initial encounter; S80.02XA Contusion of left knee, initial encounter; W18.30XA Fall on same level, unspecified, initial encounter
CPT/HCPCS: 70450; 71045; 72125; 82947; 99283